=== PATIENT | female | born 1970 | race Caucasian/White ===

== ENCOUNTER 2016-09-13 16:41 | Inpatient (IN) ==
[2016-09-13] MEDS ORDERED: 0.9 % Sodium Chloride 1,000 ML IVC ONE (16:47)
--- NOTE | 2016-09-13 16:50 | Emergency Department Note ---
Disposition Clinical Impression: Dehydration, Renal insufficiency UTI (urinary tract infection) Qualifiers: Urinary tract infection type: acute cystitis Hematuria presence: without hematuria Qualified Code(s): N30.00 - Acute cystitis without hematuria Nausea & vomiting Qualifiers: Vomiting type: unspecified Vomiting Intractability: unspecified Qualified Code( s): R11.2 - Nausea with vomiting, unspecified Disposition: Admitted As Inpatient Condition: Good Referrals: Pedro Ibrahim MD [Primary Care Provider] - Forms: ED Satisfaction Letter Time of Disposition: 18:33 General Adult HPI - General Chief complaint: ED Syncope Stated complaint: Low BP Time Seen by Provider: 09/13/16 16:42 Source: patient, EMS Mode of arrival: EMS Limitations: no limitations Nursing Notes Reviewed: Yes Vital Signs Reviewed: Yes - History of Present Illness HPI Narrative: 45-year-old who comes in complaining of nausea vomiting states that she was seen here last night diagnosed with a UTI states she's not able to keep anything down. The patient was seen at the family doctor's office and they stated she had a blood pressure in the 70s although when the squad arrived it was 90 over palp. Pt Subjective Complaint: Nausea vomiting dizziness Onset (ago): day(s) Location: abdomen Radiation: non-radiation Pain Severity: moderate Quality: aching Consistency: constant Improves with: nothing Worsens with: nothing Associated symptoms: Reports: nausea/vomiting Treatments Prior to Arrival: other (Antibiotics) - Related Data Home Medications Medication Instructions Recorded Confirmed Crestor 07/04/15 07/04/15 Insulin. 07/04/15 07/04/15 Lisinopril 07/04/15 07/04/15 Lyrica 07/04/15 07/04/15 Prilosec 07/04/15 07/04/15 Synthroid 07/04/15 07/04/15 Previous Rx's Medication Instructions Recorded Acetaminophen [Tylenol] 500 mg PO Q6HR PRN #20 tablet 07/04/15 Amoxicillin 875 mg PO BID #20 tablet 07/04/15 Cetirizine HCl [Zyrtec] 10 mg PO DAILY 3 Days 07/04/15 Fluticasone Propionate Nasal 2 spray NS DAILY 7 Days 07/04/15 [Flonase] GuaiFENesin ER [Mucinex] 600 mg PO BID PRN 3 Days 07/04/15 Magic Mouthwash 5 ml PO TIDAC PRN #120 mls 07/04/15 Azithromycin [Azithromycin 6-Tab 250 mg PO DAILY #6 tab 11/14/15 Pack] GuaiFENesin/Dextromethorphan 5 ml PO Q6H PRN #120 ml 11/14/15 [Robitussin Cough-Chest Dm Liq] Loratadine/Pseudophed (12 HR) 1 each PO BID #20 tab.er.12h 11/14/15 [Claritin D (12HR)] Amoxicillin 875 mg PO BID #20 tablet 07/23/16 GuaiFENesin/Dextromethorphan 5 ml PO Q6H PRN #120 ml 07/23/16 [Robitussin Cough-Chest Dm Liq] Loratadine [Claritin] 10 mg PO DAILY #30 tablet 07/23/16 Cephalexin [Keflex] 500 mg PO QID #28 capsule 09/13/16 Ondansetron ODT [Zofran ODT] 4 mg SL Q6HR PRN #15 tab.rapdis 09/13/16 Allergies Allergy/AdvReac Type Severity Reaction Status Date / Time No Known Allergies Allergy Verified 09/12/16 22:47 Constitutional: Denies: fever, chills, weakness, weight change Eyes: Denies: eye pain, eye discharge, vision change ENT ED: Denies: ear pain, throat pain, dental pain, hearing loss, epistaxis, congestion, dysphagia Cardiovascular: Denies: chest pain, palpitations, dyspnea on exertion, edema, syncope Respiratory: Denies: cough, dyspnea, wheezes, hemoptysis, stridor Gastrointestinal: Reports: abdominal pain, nausea, vomiting. Denies: diarrhea, constipation, hematemesis, melena, hematochezia Genitourinary: Denies: dysuria, frequency, hematuria, discharge Musculoskeletal: Denies: back pain, neck pain, arthralgia, myalgia Integumentary: Denies: rash, abrasion, lesions Neurological: Denies: headache, weakness, numbness, paresthesias, confusion, abnormal gait, vertigo Psychiatric: Denies: anxiety, depression, suicidal thoughts, homicidal thoughts , auditory hallucinations, visual hallucinations Endocrine: Denies: fatigue Hematological/Lymphatic: Denies: easy bleeding, easy bruising Allergic/Immunologic: Denies: facial swelling, urticaria Past Medical History - Past Medical History Medical history: Reports: diabetes, hyperlipidemia, hypertension, thyroid disease, other (OAB since BTL surgery 2 years ago) Psychiatric history: Reports: anxiety, depression [employer]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 - Social History Smoking Status: Current every day smoker Smokeless Tobacco Status: No Alcohol use: Reports: none Drug use: Reports: none Physical Exam - General Limitations: no limitations General appearance: alert, in no apparent distress - Head Head exam: atraumatic, normocephalic, normal inspection - Eye Eye exam: Present: normal appearance, PERRL, EOMI - ENT ENT exam: normal exam, normal oropharynx, mucous membranes moist - Neck Neck exam: Present: normal inspection, full ROM, trachea midline - Chest Chest inspection: Present: normal inspection, symmetric chest wall rise - Respiratory Respiratory exam: Present: normal lung sounds bilaterally - Cardiovascular Cardiovascular exam: Present: regular rate, normal rhythm, normal heart sounds - Abdominal Exam Abdominal exam: Present: soft, tenderness. Absent: distention, guarding, rebound, rigidity Abdominal tenderness: Present: suprapubic - Extremities Exam Extremities exam: Present: normal inspection, full ROM. Absent: tenderness, pedal edema - Expanded Lower Extremity Exam Neurovascular/Tendon exam: Absent: motor deficit, sensory deficit, tendon deficit Gait: not tested/not observed - Back Exam Back exam: Present: normal inspection, full ROM. Absent: tenderness - Neurological Exam Neurological exam: Present: alert, oriented X3 - Psychiatric Psychiatric exam: Present: normal affect, normal mood Course - Reevaluation(s) Reevaluation #1: 35-year-old was diagnosed with UTI last night she's been having nausea vomiting throughout the night seen by family doctor found above a systolic blood pressure of 70. IV was established she was given fluid bolus her blood pressure improved. She will be admitted for IV hydration. Time: 18:32 - Consultations Consultation #1: Discussed with , admit. Time: 18:31 Vital Signs Temperature 98.8 F 09/13/16 16:43 Pulse Rate 79 09/13/16 16:43 Respiratory Rate 16 09/13/16 16:43 Blood Pressure 96/89 09/13/16 16:43 O2 Sat by Pulse Oximetry 94 L 09/13/16 16:43 Temperature 98.8 F 09/13/16 16:43 Pulse Rate 79 09/13/16 16:51 Respiratory Rate 18 09/13/16 16:51 Blood Pressure 96/89 09/13/16 16:51 O2 Sat by Pulse Oximetry 96 09/13/16 16:51 Oxygen Delivery Oxygen Delivery Room Air Medical Decision Making - Lab Data Result diagrams: 09/13/16 17:46 09/13/16 17:46 Lab Results 09/13/16 09/13/16 09/13/16 Range/Units 17:46 17:46 17:46 WBC 13.5 H (4.3-11.1) K/mcL RBC 4.43 (3.82-4.97) M/mcL Hgb 13.9 (11.5-15.4) g/dL Hct 40.7 (35.3-44.9) % MCV 91.9 (83.0-100.0) fL MCH 31.4 (28.0-33.3) pg MCHC 34.2 (31.6-35.5) g/dL RDW 15.0 H (11.5-14.5) % Plt Count 153 (140-400) K/mcL MPV 12.5 H (9.4-12.4) fL Immature Gran % 1.6 (0-4) % Seg Neutrophils % 91.4 % Lymphocytes % 4.9 % Monocytes % 1.7 % Eosinophils % 0.1 % Basophils % 0.3 % Neutrophils # 12.3 H (1.6-8.9) K/mcL Lymphocytes # 0.7 (0.6-4.6) K/mcL Monocytes # 0.2 (0.0-1.3) K/mcL Eosinophils # 0.0 (0.0-0.6) K/mcL Basophils # 0.0 (0.0-0.2) K/mcL PT 12.1 (9.4-12.1) Seconds INR 1.1 APTT 33.3 (26.0-36.0) Seconds Sodium 131 L (136-145) mEq/L Potassium 3.1 L (3.5-4.5) mEq/L Chloride 96 L (98-109) mEq/L Carbon Dioxide 22 (19-29) mEq/L BUN 16 (7-20) mg/dL Creatinine 1.13 H (0.57-1.11) mg/dL Est GFR ( Amer) > 60 (> 60) Est GFR (Non-Af Amer) 53 L (> 60) BUN/Creatinine Ratio 14 (6-26) Glucose 130 H (70-99) mg/dL Calculated Osmolality 275 L (280-300) Calcium 9.3 (8.6-10.8) mg/dL Troponin I (0-0.03) ng/mL Serum , Qual (Negative) 09/13/16 09/13/16 Range/Units 17:46 17:46 WBC (4.3-11.1) K/mcL RBC (3.82-4.97) M/mcL Hgb (11.5-15.4) g/dL Hct (35.3-44.9) % MCV (83.0-100.0) fL MCH (28.0-33.3) pg MCHC (31.6-35.5) g/dL RDW (11.5-14.5) % Plt Count (140-400) K/mcL MPV (9.4-12.4) fL Immature Gran % (0-4) % Seg Neutrophils % % Lymphocytes % % Monocytes % % Eosinophils % % Basophils % % Neutrophils # (1.6-8.9) K/mcL Lymphocytes # (0.6-4.6) K/mcL Monocytes # (0.0-1.3) K/mcL Eosinophils # (0.0-0.6) K/mcL Basophils # (0.0-0.2) K/mcL PT (9.4-12.1) Seconds INR APTT (26.0-36.0) Seconds Sodium (136-145) mEq/L Potassium (3.5-4.5) mEq/L Chloride (98-109) mEq/L Carbon Dioxide (19-29) mEq/L BUN (7-20) mg/dL Creatinine (0.57-1.11) mg/dL Est GFR ( Amer) (> 60) Est GFR (Non-Af Amer) (> 60) BUN/Creatinine Ratio (6-26) Glucose (70-99) mg/dL Calculated Osmolality (280-300) Calcium (8.6-10.8) mg/dL Troponin I 0.00 (0-0.03) ng/mL Serum , Qual Negative (Negative) - EKG Data EKG #1 EKG shows normal: sinus rhythm Rhythm: NSR [place]/QRS: normal Interpretation: no acute changes
[2016-09-13 17:53] LABS: Basophils % 0.3 %; Eosinophils % 0.1 %; Hematocrit 40.7 % (35.3-44.9); Hemoglobin 13.9 g/dL (11.5-15.4); Immature Granulocytes % 1.6 % (0-4); Lymphocytes # 0.7 K/mcL (0.6-4.6); Lymphocytes % 4.9 %; Mean Corpuscular HGB Conc 34.2 g/dL (31.6-35.5); Mean Corpuscular Hemoglobin 31.4 pg (28.0-33.3); Mean Corpuscular Volume 91.9 fL (83.0-100.0); Mean Platelet Volume 12.5 fL (9.4-12.4); Monocytes # 0.2 K/mcL (0.0-1.3); Monocytes % 1.7 %; Neutrophils # 12.3 K/mcL (1.6-8.9); Platelet Count 153 K/mcL (140-400); Red Blood Count 4.43 M/mcL (3.82-4.97); Segmented Neutrophils % 91.4 %
[2016-09-13 17:58] LABS: INR 1.1; Prothrombin Time 12.1 Seconds (9.4-12.1)
[2016-09-13 18:01] LABS: Activated Partial Thrombo Time 33.3 Seconds (26.0-36.0)
[2016-09-13 18:05] LABS: BUN/Creatinine Ratio 14 (6-26); Blood Urea Nitrogen 16 mg/dL (7-20); Calcium 9.3 mg/dL (8.6-10.8); Carbon Dioxide 22 mEq/L (19-29); Chloride 96 mEq/L (98-109); Glucose 130 mg/dL (70-99); Osmolality,Calculated 275 (280-300); Potassium 3.1 mEq/L (3.5-4.5); Sodium 131 mEq/L (136-145); eGFR For African Americans > 60 (> 60); eGFR For Non-African Americans 53 (> 60)
[2016-09-13] MEDS ORDERED: Naloxone 0.4 MG/ML INJ IVP PRN (19:59)
[2016-09-13] MEDS ORDERED: Ondansetron 4 MG/2 ML VIAL IVP PRN ×2 (19:59→21:30)
[2016-09-13] MEDS ORDERED: 0.9 % Sodium Chloride 1,000 ML IVC SCH (20:00)
[2016-09-13] MEDS ORDERED: levoFLOXacin 750 MG TABLET PO SCH (20:30)
[2016-09-13] MEDS: *HR* Morphine 2 MG/ML SYRINGE IVP PRN (20:37)
[2016-09-13] MEDS: Acetaminophen 325 MG TABLET PO PRN (21:16)
[2016-09-13] MEDS: 0.9 % Sodium Chloride 1,000 ML IVC SCH ×4 (21:25→23:49)
[2016-09-13] MEDS ORDERED: Acetaminophen 650 MG RECTAL SUPP RC PRN (21:29)
[2016-09-13] MEDS ORDERED: *HR* Dextrose 50 % in Water (Syg) 50 ML SYRINGE IVP PRN (21:39)
[2016-09-13] MEDS ORDERED: D5% in Water 1,000 ML IV PRN (21:39)
[2016-09-13] MEDS ORDERED: Dextrose Gel 15 GM PO PRN ×2 (21:39)
--- NOTE | 2016-09-13 22:00 | Internal Med History&Physical ---
Addendum entered and electronically signed by Haley Terry DO 00:10: Patient was treated with Keflex 500mg QID x 7 days when discharged to home from ED on morning of 09/13/16. She states that she was only able to take one pill after discharge due to nausea and vomiting. Addendum entered and electronically signed by Yordan Rodgers MD 09/13/16 23:53 : I agree with the assessment and plan of Resident, case discussed, plan agreed upon. Patient evaluated at bedside. Right-sdied pleuritic pain. Reduced air entry in lung bases, R<L, expiratory wheezing in both lung zone. I appreciate finding on CXR. Evaluation suggestive of RLL pneumonia with pleurisy. Urinalysis is equivocal. Unlikely she has UTI. Ceftriaxone and Azithromycin. IVF for MONICA and hyponatremia, supplement potassium. Original Note: Date of Encounter: 09/13/16 Time of Encounter: 20:00 Assessment and Plan (1) Sepsis Current visit: Yes Status: Acute Patient with fever 101.7, WBC 13.5 CXR with RLL PNA and possible LLL PNA 1L bolus IVF in ED given 1L bolus + IVF at 120mL/hr Sputum culture, pending Blood cultures x 2 Ceftriaxone 1g and Zithromax 500mg q 24 hours Qualifiers: Sepsis type: sepsis due to unspecified organism Qualified Code(s): A41.9 - Sepsis, unspecified organism (2) Pneumonia Current visit: Yes Status: Acute Plan: See plan as above Duonebs prn Qualifiers: Pneumonia type: due to unspecified organism Laterality: bilateral Qualified Code(s): J18.9 - Pneumonia, unspecified organism (3) MONICA (acute kidney injury) Current visit: Yes Status: Acute Patient with Cr 1.13 up from 1.08 yesterday. This is likely due to dehydration from intractable vomiting with diarrhea. Plan: IVF rehydration Trend renal function in am (4) Dehydration with hyponatremia Current visit: Yes Status: Acute Plan: Continue IVF rehydration Trend CMP in am (5) Hypokalemia Current visit: Yes Status: Acute Hyponatremia and hypokalemia with dehydration Plan: IVF rehydration Replace K+ 40mEq Trend CMP in am (6) Diabetes mellitus type 1 Current visit: Yes Status: Acute Patient has insulin pump in place and on Novalog 50-70 units per day Plan: Supply short-acting insulin for pump POC Glucose q 4hr Hypoglycemia protocol Qualifiers: Diabetes mellitus complication status: with unspecified complications Qualified Code(s): E10.8 - Type 1 diabetes mellitus with unspecified complications (7) Insulin pump in place Current visit: Yes Status: Acute (8) Nausea and vomiting Current visit: No Status: Acute Plan: Prn Zofran and phenergan IVF rehydration Qualifiers: Vomiting type: unspecified Vomiting Intractability: non-intractable Qualified Code(s): R11.2 - Nausea with vomiting, unspecified (9) Abnormal urinalysis Current visit: Yes Status: Acute Patient with pyouria on ED visit 09/12/16. May be due to dehydration. Urine culture, pending. Plan: Ceftriaxone given in ED Continue ceftriaxone (10) DVT prophylaxis Current visit: Yes Status: Acute Calf pumps Internal Medicine - H&P: HPI Chief complaint: nausea,vomiting,dizzizness, back pain Admitted From: Emergency Dept Plans for Post Hospital Care: Home History of present illness: Ms. Fernandez is a 45 year old female who presents to the hospital with a 5 day history of progressively worsening nausea and vomiting. She states that she has also had right-sided back pain 5 days. She presented to her family doctor , Dr. Alatorre on or Monday. She states that she had a shot in the gluteus medius muscle for the back pain. However she does not know what was in this shot. She states that she has been having recent fever, chills, and diaphoresis. She presented to the emergency department yesterday 09/12/2016, and was diagnosed with UTI. She was treated with___. She returned to the emergency department with complaints that nausea, vomiting, and back pain did not resolve. Admits fever, chills, diaphoresis, headache, dizziness, weakness, disequilibrium , nasal congestion, bradycardia, dyspnea at rest, cough productive of yellow sputum, increased frequency of urination. Denies chest pain, palpitations, syncope, hemoptysis, hematemesis, hematochezia , melena, dysuria, hematuria. Past Med Surg Social Fam HX - Past Medical History Medical history: diabetes, hyperlipidemia, hypertension, peripheral artery disease, thyroid disease, other (urge incontinence) Psychiatric history: anxiety, depression - Past Surgical History Surgical History: other (tubal ligation), vascular surgery (angioplasty to bilateral lower extremities) - Social History Smoking Status: Current every day smoker Packs per day: 1.5 Smokeless Tobacco Status: No Alcohol use: none Drug use: none - Family History Mother Living Status: Still Living Hx Family Cancer: Yes (Lung Cancer) Father Living Status: Still Living Hx Family Cardiac Disorders: Yes (PVD) Internal Medicine - H&P: Meds Citalopram Hydrobromide [Citalopram HBr] 40 mg PO DAILY 09/13/16 [History] Insulin ASPART [NovoLOG] 0 unit SQ AD 09/13/16 [History] Levothyroxine [Synthroid] 150 mcg PO DAILY 09/13/16 [History] Lisinopril [Lisinopril] 2.5 mg PO DAILY 09/13/16 [History] Melatonin [Melatonin] 2.5 mg PO HS 09/13/16 [History] Omeprazole [PriLOSEC] 40 mg PO DAILY 09/13/16 [History] Pregabalin [Lyrica] 150 mg PO BID 09/13/16 [History] Rosuvastatin Calcium [Rosuvastatin Calcium] 40 mg PO DAILY 09/13/16 [History] Tizanidine HCl 4 mg PO TID PRN 09/13/16 [History] Tramadol HCl [Tramadol HCl] 50 mg PO TID PRN 09/13/16 [History] Allergies No Known Allergies Allergy (Verified 09/12/16 22:47) All Systems PM: A 10-system review of systems was performed and is negative for pertinent findings except as documented above in the HPI. - Constitutional Constitutional: anorexia, chills, excessive sweating, fatigue, fever(s), weakness, no falls - EENT Ears: ear pain Nose, mouth and throat: nasal congestion, nasal discharge - Cardiovascular Cardiovascular ROS IM: dyspnea, dyspnea on exertion, other (bradycardia- subjective), no chest pain, no irregular heart rhythm - Respiratory Respiratory: cough, dyspnea, change in phlegm color (yellow sputum), no hemoptysis - Gastrointestinal Gastrointestinal: diarrhea, nausea, vomiting (non-bloody), no abdominal pain, no hematemesis, no hematochezia, no melena - Genitourinary Genitourinary: flank pain (right sided), urinary frequency, urinary incontinence (chronic stress incontinence), no dysuria - Musculoskeletal Musculoskeletal ROS IM: back pain (right sided back pain x 5 days), myalgias - Neurological Neurological ROS: disequilibrium, dizziness, headache(s), loss of vision, weakness - Constitutional Vitals: Temp Pulse Resp BP Pulse Ox 101.7 F H 93 16 105/72 97 09/13/16 20:42 09/13/16 20:42 09/13/16 20:42 09/13/16 20:42 09/13/16 20:42 General appearance: Present: cooperative, mild distress (vomitting intermittently during exam), A&O X 3, pleasant, answers questions appropriately - Head Head exam: Present: atraumatic, normal inspection, normocephalic - Eye Eye exam: Present: EOMI - ENT ENT exam: Present: mucous membranes dry - Neck Neck exam general surgery: Present: full ROM - Respiratory Respiratory exam: Present: chest wall tenderness (TTP right back wrapping around right flank to right chest), wheezes (expiratory wheezing bilaterally, right base greater than left). Absent: rhonchi - Cardiovascular Cardiovascular exam: Present: RRR, +S1, +S2 - GI/Abdominal GI/Abdominal exam: Present: normal bowel sounds. Absent: tenderness, no peritoneal signs - Extremities Exam Extremities exam: Present: warm. Absent: pedal edema, tenderness - Psychiatric Psychiatric exam: Present: normal affect, normal mood - Skin Skin exam: Present: warm Internal Med - H&P Results - Labs CBC & Chem 7: 09/13/16 17:46 09/13/16 17:46 Labs: Laboratory Results - last 48 hr 09/13/16 09/13/16 09/13/16 17:46 17:46 17:46 WBC 13.5 H RBC 4.43 Hgb 13.9 Hct 40.7 MCV 91.9 MCH 31.4 MCHC 34.2 RDW 15.0 H Plt Count 153 MPV 12.5 H Immature Gran % 1.6 Seg Neutrophils % 91.4 Lymphocytes % 4.9 Monocytes % 1.7 Eosinophils % 0.1 Basophils % 0.3 Neutrophils # 12.3 H Lymphocytes # 0.7 Monocytes # 0.2 Eosinophils # 0.0 Basophils # 0.0 PT 12.1 INR 1.1 APTT 33.3 Sodium 131 L Potassium 3.1 L Chloride 96 L Carbon Dioxide 22 BUN 16 Creatinine 1.13 H Est GFR ( Amer) > 60 Est GFR (Non-Af Amer) 53 L BUN/Creatinine Ratio 14 Glucose 130 H POC Glucose Calculated Osmolality 275 L Lactic Acid Calcium 9.3 Total Bilirubin Troponin I Serum , Qual 09/13/16 09/13/16 09/13/16 17:46 17:46 21:24 WBC RBC Hgb Hct MCV MCH MCHC RDW Plt Count MPV Immature Gran % Seg Neutrophils % Lymphocytes % Monocytes % Eosinophils % Basophils % Neutrophils # Lymphocytes # Monocytes # Eosinophils # Basophils # PT INR APTT Sodium Potassium Chloride Carbon Dioxide BUN Creatinine Est GFR ( Amer) Est GFR (Non-Af Amer) BUN/Creatinine Ratio Glucose POC Glucose 207 H Calculated Osmolality Lactic Acid Calcium Total Bilirubin Troponin I 0.00 Serum , Qual Negative 09/13/16 09/13/16 22:32 22:32 WBC RBC Hgb Hct MCV MCH MCHC RDW Plt Count MPV Immature Gran % Seg Neutrophils % Lymphocytes % Monocytes % Eosinophils % Basophils % Neutrophils # Lymphocytes # Monocytes # Eosinophils # Basophils # PT INR APTT Sodium Potassium Chloride Carbon Dioxide BUN Creatinine Est GFR ( Amer) Est GFR (Non-Af Amer) BUN/Creatinine Ratio Glucose POC Glucose Calculated Osmolality Lactic Acid 1.2 Calcium Total Bilirubin 0.7 Troponin I Serum , Qual - Impressions Chest X-Ray 09/13/16 16:47 IMPRESSION: Large confluent right lower lobe pneumonia. Possible mild left lower lobe disease. Follow-up to complete clearing is recommended. D/ / Vince Henderson MD / Vince Henderson MD Interpreting Provider: Vince Henderson MD
[2016-09-13] MEDS ORDERED: 0.9 % Sodium Chloride 1,000 ML ONE (22:05)
[2016-09-13] MEDS ORDERED: Insulin LISPRO 300 UNITS/3 ML VIAL SQ PRN (22:18)
[2016-09-13] MEDS ORDERED: *HR* Promethazine 25 MG/ML VIAL IVP PRN (22:26)
[2016-09-13] MEDS: 0.9 % Sodium Chloride w KCl 20 MEQ/1,000 ML MLS IVC SCH (22:36)
[2016-09-13] MEDS: Pregabalin 75 MG CAPSULE PO SCH (22:39)
[2016-09-13] MEDS: Melatonin 3 MG TABLET PO SCH (22:40)
[2016-09-13] MEDS ORDERED: INSULIN ASPART SQ PRN (23:21)
[2016-09-13] MEDS ORDERED: Ipratropium/Albuterol Neb 3 ML IH PRN (23:28)
[2016-09-13] MEDS: Azithromycin 500 MG in D5% in Water 250 ML IVPB SCH (23:36)
[2016-09-14] MEDS ORDERED: Promethazine 12.5 MG in 0.9 % Sodium Chloride 50 ML IVPB SCH
[2016-09-14 04:11] LABS: Hematocrit 33.4 % (35.3-44.9); Mean Corpuscular HGB Conc 34.7 g/dL (31.6-35.5); Mean Corpuscular Hemoglobin 31.5 pg (28.0-33.3); Mean Corpuscular Volume 90.8 fL (83.0-100.0); Mean Platelet Volume 12.4 fL (9.4-12.4); Platelet Count 132 K/mcL (140-400); Red Blood Count 3.68 M/mcL (3.82-4.97); Red Cell Distribution Width 15.3 % (11.5-14.5)
[2016-09-14 04:23] LABS: Hemoglobin 11.6 g/dL (11.5-15.4)
[2016-09-14 04:39] LABS: Alanine Aminotransferase 19 Units/L (0-55); Albumin 2.4 g/dL (3.5-5.0); Albumin/Globulin Ratio 0.7 (1.1-2.2); Alkaline Phosphatase 175 Units/L (38-126); Aspartate Amino Transferase 36 Units/L (5-34); BUN/Creatinine Ratio 12 (6-26); Bilirubin,Total 0.6 mg/dL (0.2-1.2); Blood Urea Nitrogen 11 mg/dL (7-20); Carbon Dioxide 22 mEq/L (19-29); Chloride 103 mEq/L (98-109); Globulin 3.4 g/dL (2.4-3.5); Glucose 315 mg/dL (70-99); LDL Cholesterol,Calculated 19 mg/dL (0-99); Magnesium 1.6 mg/dL (1.6-2.6); Osmolality,Calculated 287 (280-300); Phosphorous 1.7 mg/dL (2.3-4.7); Potassium 3.9 mEq/L (3.5-4.5); Sodium 133 mEq/L (136-145); Total Protein 5.8 g/dL (6.0-8.3); Triglycerides 198 mg/dL (< 150); eGFR For African Americans > 60 (> 60); eGFR For Non-African Americans > 60 (> 60)
[2016-09-14 04:49] LABS: Calcium 7.5 mg/dL (8.6-10.8); Cholesterol 64 mg/dL (< 200); HDL Cholesterol < 5 mg/dL (40-59)
[2016-09-14] MEDS: *HR* Morphine 2 MG/ML SYRINGE IVP PRN (05:02)
[2016-09-14 05:10] LABS: Lymphocytes # 0.9 K/mcL (0.6-4.6); Monocytes # 0.5 K/mcL (0.0-1.3); Neutrophils # 10.2 K/mcL (1.6-8.9); Platelet Estimate Normal (Normal)
[2016-09-14] MEDS: Pantoprazole 40 MG VIAL IVP SCH (09:54)
[2016-09-14] MEDS: Pregabalin 75 MG CAPSULE PO SCH ×2 (09:54→23:01)
--- NOTE | 2016-09-14 10:57 | Electrocardiograph Report ---
[address] [place], [place] [address] Test Date: 2016-09-13 Pat Name: Stephanie Fernandez Department: 103 Room: 3B38 Gender: F Stand Up Forklift Operator: : 1970 Requested By: James Root Order Number: [id number] Reading MD: Barbara De Leon Measurements Intervals [place] Rate: 77 P: 62 TN: 155 QRS: 93 QRSD: 108 T: 67 QT: 392 QTc: 423 Interpretive Statements SINUS RHYTHM BORDERLINE RIGHT AXIS DEVIATION LOW QRS VOLTAGE IN PRECORDIAL LEADS INCOMPLETE RIGHT BUNDLE BRANCH BLOCK SEPTAL MYOCARDIAL INFARCTION, OF INDETERMINATE AGE Electronically Signed On 09-14-2016 10:55:35 EST by Barbara De Leon
[2016-09-14] MEDS: *HR* HYDROcodone/Acet 5/325 mg TABLET PO PRN ×2 (12:58→19:28)
--- NOTE | 2016-09-14 13:04 | Internal Med Progress Note ---
Date of Encounter: 09/14/16 Time of Encounter: 09:00 - Assessment and plan (1) Pneumonia Current Visit: Yes Status: Acute Assessment and plan: Likely community-acquired, no recent hospitalizations. Unknown organism. Sputum culture pending. Continue azithromycin and ceftriaxone. Fever has subsided. She is tolerating room air. Patient complaining of right-sided chest pain that is reproducible and consistent with musculoskeletal etiology. Hypokalemia and acute kidney injury both resolved. We will observe overnight and likely discharge tomorrow pending clinical outcomes. ITS Impressions Chest X-Ray 09/13/16 16:47 IMPRESSION: Large confluent right lower lobe pneumonia. Possible mild left lower lobe disease. Follow-up to complete clearing is recommended. D/ / Vince Henderson MD / Vince Henderson MD Interpreting Provider: Vince Henderson MD Qualifiers: Pneumonia type: due to unspecified organism Laterality: bilateral Qualified Code(s): J18.9 - Pneumonia, unspecified organism (2) Nausea and vomiting Current Visit: No Status: Resolved Assessment and plan: Continue Zofran and Phenergan. Qualifiers: Vomiting type: unspecified Vomiting Intractability: non-intractable Qualified Code(s): R11.2 - Nausea with vomiting, unspecified (3) Sepsis Current Visit: Yes Status: Resolved Assessment and plan: Patient now afebrile. Leukocytosis nearly resolved. Heart rate and blood pressure stable. Lactic acid normal. No signs of sepsis at this time Qualifiers: Sepsis type: sepsis due to unspecified organism Qualified Code(s): A41.9 - Sepsis, unspecified organism (4) Abnormal urinalysis Current Visit: Yes Status: Acute Assessment and plan: Abnormal urinalysis on 09/12/16. Urine culture grossly mixed. Patient denies dysuria. On azithromycin and ceftriaxone for pneumonia (5) MONICA (acute kidney injury) Current Visit: Yes Status: Resolved (6) DVT prophylaxis Current Visit: Yes Status: Acute Assessment and plan: IPC's (7) Dehydration with hyponatremia Current Visit: Yes Status: Acute (8) Diabetes mellitus type 1 Current Visit: Yes Status: Chronic Assessment and plan: Continue her home insulin pump. No recent A1c, we will check an a.m. continue Accu-Cheks every 4 Qualifiers: Diabetes mellitus complication status: with unspecified complications Qualified Code(s): E10.8 - Type 1 diabetes mellitus with unspecified complications (9) Hypokalemia Current Visit: Yes Status: Resolved (10) Insulin pump in place Current Visit: Yes Status: Chronic - Subjective Interval history: Patient seen and examined. On examination, patient is sitting upright in bed eating breakfast. Patient still endorsing right-sided chest pain that is worsened with movement and touch. Patient stating she is eating well and states her nausea and vomiting is currently controlled. - Constitutional Vitals: Temp Pulse Resp BP Pulse Ox 98.3 F 79 16 124/83 97 09/14/16 11:06 09/14/16 11:06 09/14/16 11:06 09/14/16 11:06 09/14/16 11:06 General appearance: Present: cooperative, A&O X 3, pleasant, no acute distress, answers questions appropriately - Head Head exam: Present: atraumatic, normocephalic - Eye Eye exam: Present: PERRL, conjuntiva pink, sclera anicteric Pupils: Present: PERRL - Neck Neck exam general surgery: Present: supple, trachea midline. Absent: lymphadenopathy - Respiratory Respiratory exam: Present: chest wall tenderness, decreased breath sounds. Absent: accessory muscle use, rales, respiratory distress, rhonchi, wheezes - Cardiovascular Cardiovascular exam: Present: RRR, +S1, +S2. Absent: diastolic murmur, gallop, rubs, systolic murmur - GI/Abdominal GI/Abdominal exam: Present: normal bowel sounds, soft, no peritoneal signs. Absent: distended, tenderness - Extremities Exam Extremities exam: Present: warm, radial pulses palpable and symetrical. Absent : calf tenderness, cyanotic, pedal edema - Neurological Exam Neurological exam: Present: alert, CN II-XII intact, oriented X3, no focal deficits, strengths equal and symetr throughout. Absent: pronater drift, facial droop, speech deficit - Skin Skin exam: Present: dry, intact, pallor, warm Internal Medicine: Result - Labs CBC & Chem 7: 09/14/16 03:52 09/14/16 03:52 Labs: Short CBC 09/14/16 Range/Units 03:52 WBC 11.6 H (4.3-11.1) K/mcL Hgb 11.6 D (11.5-15.4) g/dL Hct 33.4 L (35.3-44.9) % Plt Count 132 L (140-400) K/mcL Neutrophils # 10.2 H (1.6-8.9) K/mcL BMP 09/14/16 03:52 Sodium 133 L Potassium 3.9 Chloride 103 Carbon Dioxide 22 BUN 11 Creatinine 0.90 Glucose 315 H Calcium 7.5 L D Liver Function 09/14/16 Range/Units 03:52 Total Bilirubin 0.6 (0.2-1.2) mg/dL AST 36 H (5-34) Units/L ALT 19 (0-55) Units/L Alkaline Phosphatase 175 H (38-126) Units/L Albumin 2.4 L (3.5-5.0) g/dL - ABG Interpretation ABG results: PT/INR, D-dimer PT 12.1 Seconds (9.4-12.1) 09/13/16 17:46 Consult Discharge Plan - Plan Referrals: Pedro Ibrahim MD [Primary Care Provider] -
[2016-09-14] MEDS: Melatonin 3 MG TABLET PO SCH (23:02)
[2016-09-14] MEDS: Azithromycin 500 MG in D5% in Water 250 ML IVPB SCH (23:02)
[2016-09-15] MEDS: 0.9 % Sodium Chloride w KCl 20 MEQ/1,000 ML MLS IVC SCH (02:50)
[2016-09-15] MEDS: Acetaminophen 325 MG TABLET PO PRN (03:17)
[2016-09-15 03:56] LABS: Basophils % 0.2 %; Eosinophils # 0.1 K/mcL (0.0-0.6); Eosinophils % 0.5 %; Hematocrit 40.1 % (35.3-44.9); Immature Granulocytes % 1.9 % (0-4); Lymphocytes # 1.1 K/mcL (0.6-4.6); Lymphocytes % 10.3 %; Mean Corpuscular HGB Conc 33.4 g/dL (31.6-35.5); Mean Corpuscular Hemoglobin 30.5 pg (28.0-33.3); Mean Corpuscular Volume 91.1 fL (83.0-100.0); Mean Platelet Volume 11.2 fL (9.4-12.4); Monocytes # 0.4 K/mcL (0.0-1.3); Monocytes % 3.5 %; Neutrophils # 8.7 K/mcL (1.6-8.9); Platelet Count 186 K/mcL (140-400); Red Cell Distribution Width 15.5 % (11.5-14.5); Segmented Neutrophils % 83.6 %
[2016-09-15 04:00] LABS: Hemoglobin 13.4 g/dL (11.5-15.4)
[2016-09-15 04:10] LABS: Hemoglobin A1C 7.9 %
[2016-09-15 04:14] LABS: BUN/Creatinine Ratio 11 (6-26); Blood Urea Nitrogen 9 mg/dL (7-20); Calcium 8.6 mg/dL (8.6-10.8); Carbon Dioxide 26 mEq/L (19-29); Chloride 99 mEq/L (98-109); Glucose 55 mg/dL (70-99); Osmolality,Calculated 278 (280-300); Potassium 3.3 mEq/L (3.5-4.5); Sodium 136 mEq/L (136-145); eGFR For African Americans > 60 (> 60); eGFR For Non-African Americans > 60 (> 60)
[2016-09-15] MEDS: Pregabalin 75 MG CAPSULE PO SCH (07:51)
[2016-09-15] MEDS: Pantoprazole 40 MG VIAL IVP SCH (07:52)
[2016-09-15] MEDS: *HR* HYDROcodone/Acet 5/325 mg TABLET PO PRN (07:56)
[2016-09-15 11:15] VITALS: BP 122/81
--- NOTE | 2016-09-15 13:19 | Discharge Summary ---
Date of Encounter: 09/15/16 Time of Encounter: 09:45 (and 1315) - Discharge Diagnosis (1) Pneumonia Priority: Primary Status: Acute Comments: Likely community-acquired, no recent hospitalizations. Unknown organism. Sputum culture pending at time of discharge. Treated with azithromycin and ceftriaxone while admitted. Fever has subsided. She is tolerating room air and denies shortness of breath above her norm. Reproducible right-sided chest pain resolved on day of discharge. ITS Impressions Chest X-Ray 09/13/16 16:47 IMPRESSION: Large confluent right lower lobe pneumonia. Possible mild left lower lobe disease. Follow-up to complete clearing is recommended. D/ / Vince Henderson MD / Vince Henderson MD Interpreting Provider: Vince Henderson MD Qualifiers: Pneumonia type: due to unspecified organism Laterality: bilateral Qualified Code(s): J18.9 - Pneumonia, unspecified organism (2) Nausea and vomiting Priority: Primary Status: Resolved Qualifiers: Vomiting type: unspecified Vomiting Intractability: non-intractable Qualified Code(s): R11.2 - Nausea with vomiting, unspecified (3) Sepsis Priority: Primary Status: Resolved Qualifiers: Sepsis type: sepsis due to unspecified organism Qualified Code(s): A41.9 - Sepsis, unspecified organism (4) Abnormal urinalysis Priority: Primary Status: Ruled-out Comments: Abnormal urinalysis on 09/12/16. Urine culture grossly mixed. Patient denies dysuria. On azithromycin and ceftriaxone for pneumonia while admitted. Sent home on Levofloxacin which would cover most UTI organisms; low suspicion for acute UTI (5) MONICA (acute kidney injury) Priority: Primary Status: Resolved (6) DVT prophylaxis Priority: Primary Status: Acute Comments: IPC's while admitted (7) Dehydration with hyponatremia Priority: Primary Status: Resolved (8) Diabetes mellitus type 1 Priority: Secondary Status: Chronic Comments: Continued her home insulin pump while admitted. A1c 7.9%. She did have a hypoglycemic episode on the morning of discharge, resolved quickly with food. Recommend continued follow up outpatient. Qualifiers: Diabetes mellitus complication status: with unspecified complications Qualified Code(s): E10.8 - Type 1 diabetes mellitus with unspecified complications (9) Hypokalemia Priority: Primary Status: Acute Comments: resolved, then mild on day of discharge. Asymptomatic, follow-up outpatient (10) Insulin pump in place Priority: Secondary Status: Chronic - Discharge Medications Prescriptions: Albuterol Sulfate [Albuterol Inhaler] 2 puff IH Q4HR PRN #1 hfa.aer.ad PRN Reason: Shortness Of Breath Promethazine [Phenergan] 12.5 mg PO Q6HR PRN #15 tablet PRN Reason: Nausea And Vomiting Budesonide/Formoterol 160/4.5 [Symbicort 160/4.5] 2 puff IH BIDR #1 hfa.aer.ad GuaiFENesin ER [Mucinex] 600 mg PO BID #14 tbbp.12hr HYDROcodone/Acet 5/325 mg [[place] 5-325 mg] 1 tab PO Q6H PRN #12 tablet PRN Reason: Pain Levofloxacin 750 mg PO DAILY #7 tablet Home Medications: Citalopram Hydrobromide [Citalopram HBr] 40 mg PO DAILY 09/13/16 [History] Insulin ASPART [NovoLOG] 0 unit SQ AD 09/13/16 [History] Levothyroxine [Synthroid] 150 mcg PO DAILY 09/13/16 [History] Lisinopril 2.5 mg PO DAILY 09/13/16 [History] Melatonin 2.5 mg PO HS 09/13/16 [History] Omeprazole [PriLOSEC] 40 mg PO DAILY 09/13/16 [History] Pregabalin [Lyrica] 150 mg PO BID 09/13/16 [History] Rosuvastatin Calcium 40 mg PO DAILY 09/13/16 [History] Tizanidine HCl 4 mg PO TID PRN 09/13/16 [History] Tramadol HCl 50 mg PO TID PRN 09/13/16 [History] Albuterol Sulfate [Albuterol Inhaler] 2 puff IH Q4HR PRN #1 hfa.aer.ad 09/15/16 [Rx] Budesonide/Formoterol 160/4.5 [Symbicort 160/4.5] 2 puff IH BIDR #1 hfa.aer.ad 09/15/16 [Rx] GuaiFENesin ER [Mucinex] 600 mg PO BID #14 tbbp.12hr 02/09/17 [Rx] HYDROcodone/Acet 5/325 mg [[place] 5-325 mg] 1 tab PO Q6H PRN #12 tablet 09/15/16 [Rx] Levofloxacin 750 mg PO DAILY #7 tablet 09/15/16 [Rx] Promethazine [Phenergan] 12.5 mg PO Q6HR PRN #15 tablet 09/15/16 [Rx] Allergies/Adverse Reactions: Allergies No Known Allergies Allergy (Verified 09/12/16 22:47) Date of admission: 09/13/16 23:50 Primary care physician: Pedro Ibrahim MD Discharging clinician: Gaye Busch Anticipated date of discharge: 09/15/16 (if able to eat lunch) - Patient Status Disposition: Home, Self-Care Condition: Good Functional capacity at discharge: independent ambulation Overall status at discharge: patient is back to baseline - Discharge Instructions Follow Up With: Pedro Ibrahim MD [Primary Care Provider] - Additional Instructions: Follow-up with primary care provider in one to 2 weeks - Diet and Activity Activity: increase activity as tolerated Diet: diabetic diet, low fat, low cholesterol, low salt diet Hospital course: Ms. Fernandez is a 45 year old female with past medical history type 1 diabetes with insulin pump, hyperlipidemia, hypertension, PAD, thyroid disease, 1.5 packs per day smoker. Patient presented to the emergency department chief complaint nausea and vomiting 5 days associated with right-sided back pain 5 days. Patient saw her primary care doctor several days prior to this presentation she was given a shot of an unknown medication. Patient also endorsed fever, chills, diaphoresis. Patient was seen in the emergency department on the day prior to this presentation she was diagnosed with a urinary tract infections at home on Keflex. Due to her vomiting, she is not able to take any of the Keflex that she returned to the emergency department. Chest x-ray in the emergency department consistent with right lower lobe pneumonia. Patient was started on azithromycin and ceftriaxone and admitted to the hospitalist service for further evaluation and management. Initial acute kidney injury and leukocytosis resolved during her 3 day admission. Patient denied dysuria. Urine culture was grossly mixed and unable to be interpreted. Blood cultures were negative. She was initially septic but that resolved shortly after admission. She was able to tolerate a regular diet while admitted. She did not require supplemental oxygenation during this admission. On the night prior to presentation, patient became mildly hypoglycemic that resolved quickly with food. She was discharged home in stable condition with close outpatient follow-up recommended. She was sent on levofloxacin to cover both pneumonia and possible UTI. Of note, patient is a 1-1/2 pack per day smoker. On examination, she had diffuse wheezing throughout. She was started on controller medications of Symbicort and albuterol as needed. Recommend follow-up outpatient for PFT testing and likely COPD diagnosis. ITS Impressions Chest X-Ray 09/13/16 16:47 IMPRESSION: Large confluent right lower lobe pneumonia. Possible mild left lower lobe disease. Follow-up to complete clearing is recommended. D/ / Vince Henderson MD / Vince Henderson MD Interpreting Provider: Vince Henderson MD - Time Spent with Patient Total time spent providing and/or coordinating discharge services: - Constitutional Vitals: Temp Pulse Resp BP Pulse Ox 97.6 F 71 16 122/81 96 09/15/16 11:10 09/15/16 11:10 09/15/16 11:10 09/15/16 11:10 09/15/16 11:10 General appearance: Present: cooperative, A&O X 3, pleasant, no acute distress, answers questions appropriately - Head Head exam: Present: atraumatic, normocephalic - Eye Eye exam: Present: PERRL, conjuntiva pink, sclera anicteric Pupils: Present: PERRL - Neck Neck exam general surgery: Present: supple, trachea midline. Absent: lymphadenopathy - Respiratory Respiratory exam: Present: decreased breath sounds, rhonchi, wheezes. Absent: accessory muscle use, rales, respiratory distress - Cardiovascular Cardiovascular exam: Present: RRR, +S1, +S2. Absent: diastolic murmur, gallop, rubs, systolic murmur - GI/Abdominal GI/Abdominal exam: Present: normal bowel sounds, soft, no peritoneal signs. Absent: distended, tenderness - Extremities Exam Extremities exam: Present: warm, radial pulses palpable and symetrical. Absent : calf tenderness, cyanotic, pedal edema - Neurological Exam Neurological exam: Present: alert, CN II-XII intact, normal gait, oriented X3, no focal deficits, strengths equal and symetr throughout. Absent: pronater drift, facial droop, speech deficit - Skin Skin exam: Present: dry, intact, pallor, warm
== END 2016-09-15 14:07 | disposition home or self-care (01) | DRG 720 ==
LOC: 3BNU 16:41 → EMEROO 16:41 → 3BNU 19:22
PROVIDERS: ADMIT Family Medicine; ATTEND Nurse Practitioner Family

== ENCOUNTER 2018-11-22 09:07 | Inpatient (IN) ==
[2018-11-22] MEDS ORDERED: Ondansetron 4 MG/2 ML VIAL ONE (09:11)
[2018-11-22] MEDS ORDERED: 0.9 % Sodium Chloride 2,000 ML ONE (09:12)
--- NOTE | 2018-11-22 09:25 | Emergency Department Note ---
Disposition Clinical Impression: DKA (diabetic ketoacidoses) Qualifiers: Diabetes mellitus type: type 1 Diabetes mellitus complication detail: without coma Qualified Code(s): E10.10 - Type 1 diabetes mellitus with ketoacidosis without coma Disposition: Admitted As Inpatient Condition: Fair Time of Disposition: 11:20 General Adult HPI - General Stated complaint: high blood sugar Time Seen by Provider: 11/22/18 09:08 Source: patient Mode of arrival: EMS Limitations: no limitations Nursing Notes Reviewed: Yes Vital Signs Reviewed: Yes - History of Present Illness HPI Narrative: 48-year-old female arrives by EMS for evaluation of nausea, vomiting, and elevated blood glucose levels above 400. She is a type I diabetic, managed with an insulin pump. She states that yesterday, she developed severe nausea. This has progressed to intractable vomiting at home. She denies any fever, chills, or urinary complaints. She does describe a nonproductive cough. She denies any abdominal pain but does describe some low back pain which she attributes to the retching from vomiting. She was given 4 mg of Zofran by IV push in route to the emergency department by EMS personnel. Pt Subjective Complaint: Nausea, vomiting, elevated blood glucose levels Onset (ago): day(s) (2 days ago) Associated symptoms: Reports: cough, nausea/vomiting. Denies: fever/chills Treatments Prior to Arrival: other - Related Data Home Medications Medication Instructions Recorded Confirmed Citalopram Hydrobromide 40 mg PO DAILY 09/13/16 11/22/18 [Citalopram HBr] Insulin ASPART [NovoLOG] 0 unit SQ AD 09/13/16 11/22/18 Levothyroxine [Synthroid] 150 mcg PO QAM 09/13/16 11/22/18 Lisinopril 2.5 mg PO DAILY 09/13/16 11/22/18 Albuterol Sulfate [Albuterol 2 puff IH Q6H PRN 11/22/18 11/22/18 Inhaler] Clindamycin Phosphate [Clindagel] 1 appl TP BID 11/22/18 11/22/18 Gabapentin [Neurontin] 800 mg PO BID 11/22/18 11/22/18 Loratadine [Claritin] 10 mg PO DAILY 11/22/18 11/22/18 Melatonin [Vitajoy] 10 mg PO HS 11/22/18 11/22/18 Omeprazole [PriLOSEC] 40 mg PO DAILY 11/22/18 11/22/18 Rosuvastatin Calcium [Crestor] 40 mg PO DAILY 11/22/18 11/22/18 Allergies Allergy/AdvReac Type Severity Reaction Status Date / Time No Known Allergies Allergy Verified 11/22/18 10:35 All systems ED: reviewed and negative except as stated. Review of Systems: As Per HPI Constitutional: Denies: fever, chills, weakness, weight change Eyes: Denies: eye pain, eye discharge, vision change ENT ED: Denies: ear pain, throat pain, dental pain, hearing loss, epistaxis, congestion, dysphagia Cardiovascular: Denies: chest pain, palpitations, dyspnea on exertion, edema, syncope Respiratory: Reports: as per HPI, cough. Denies: dyspnea, wheezes, hemoptysis, stridor Gastrointestinal: Reports: as per HPI, nausea. Denies: abdominal pain, vomiting, diarrhea, constipation, hematemesis, melena, hematochezia Genitourinary: Denies: dysuria, frequency, hematuria, discharge Musculoskeletal: Reports: as per HPI, back pain. Denies: neck pain, arthralgia, myalgia Integumentary: Denies: rash, abrasion, lesions Neurological: Denies: headache, weakness, numbness, paresthesias, confusion, a bnormal gait, vertigo Psychiatric: Denies: anxiety, depression, suicidal thoughts, homicidal thoughts, auditory hallucinations, visual hallucinations Endocrine: Denies: fatigue Hematological/Lymphatic: Denies: easy bleeding, easy bruising Allergic/Immunologic: Denies: facial swelling, urticaria Past Medical History - Past Medical History Attestation: Yes The following information was validated with the patient. Source: patient, nursing notes reviewed Medical history: Reports: diabetes Surgical history: Reports: other (tubal ligation), vascular surgery (angioplasty to bilateral lower extremities) Psychiatric history: Reports: anxiety, depression [employer] history: Reports: bilateral tubal ligation - Social History Smoking Status: Current every day smoker Smokeless Tobacco Status: No Alcohol use: Reports: none Drug use: Reports: marijuana Physical Exam - General Limitations: no limitations General appearance: alert - Head Head exam: atraumatic, normocephalic, normal inspection - Eye Eye exam: Present: normal appearance, PERRL, EOMI. Absent: nystagmus - ENT ENT exam: mucous membranes dry - Neck Neck exam: Present: normal inspection, full ROM - Chest Chest inspection: Present: normal inspection, symmetric chest wall rise - Respiratory Respiratory exam: Present: normal lung sounds bilaterally. Absent: respiratory distress, wheezes, stridor, accessory muscle use, prolonged expiratory phase - Cardiovascular Cardiovascular exam: Present: normal rhythm, tachycardia, normal heart sounds - Abdominal Exam Abdominal exam: Present: soft, Non-Tender, normal bowel sounds - Extremities Exam Extremities exam: Present: normal inspection, full ROM - Neurological Exam Neurological exam: Present: alert, oriented X3 - Psychiatric Psychiatric exam: Present: normal affect, normal mood - Skin Skin exam: Present: warm, dry, intact, normal color. Absent: cyanosis, diaphoresis, pallor, mottled Course Course Narrative: I have spoken with Dr. Dailey, admitting hospitalist who has accepted the patient for admission to the hospitalist care. Patient staffed with Dr. Ly. Dr. Ly agrees with this plan. Vital Signs Temperature 96.8 F L 11/22/18 09:22 Pulse Rate 82 11/22/18 09:22 Respiratory Rate 27 11/22/18 09:22 Blood Pressure 126/108 11/22/18 09:22 O2 Sat by Pulse Oximetry 98 11/22/18 09:22 Temperature 97.7 F 11/22/18 10:57 Pulse Rate 108 11/22/18 10:57 Respiratory Rate 20 11/22/18 10:57 Blood Pressure 125/94 11/22/18 10:57 O2 Sat by Pulse Oximetry 100 11/22/18 10:57 Oxygen Delivery Oxygen Delivery Room Air Medical Decision Making - Medical Records Medical records reviewed: Yes I reviewed the patient's medical records. - Lab Data Lab results reviewed: Yes I reviewed the patient's lab results. Lab results narrative: Lab Results 11/22/18 11/22/18 11/22/18 Range/Units 09:32 09:34 09:35 WBC 16.7 H (4.3-11.1) K/mcL RBC 5.63 H (3.82-4.97) M/mcL Hgb 17.4 H (11.5-15.4) g/dL Hct 50.8 H (35.3-44.9) % MCV 90.2 (83.0-100.0) fL MCH 30.9 (28.0-33.3) pg MCHC 34.3 (31.6-35.5) g/dL RDW 12.9 (11.5-14.5) % Plt Count 223 (140-400) K/mcL MPV 12.4 (9.4-12.4) fL Immature Gran % 0.9 (0-4) % Seg Neutrophils % 87.4 % Lymphocytes % 8.7 % Monocytes % 2.2 % Eosinophils % 0.1 % Basophils % 0.7 % Neutrophils # 14.6 H (1.6-8.9) K/mcL Lymphocytes # 1.5 (0.6-4.6) K/mcL Monocytes # 0.4 (0.0-1.3) K/mcL Eosinophils # 0.0 (0.0-0.6) K/mcL Basophils # 0.1 (0.0-0.2) K/mcL VBG pH (7.32-7.42) pH Units VBG pCO2 (41-51) mmHg VBG pO2 (25-50) mmHg VBG HCO3 (21-27) mEq/L Sodium (136-145) mEq/L Potassium (3.5-5.1) mEq/L Chloride (98-107) mEq/L Carbon Dioxide (23-29) mEq/L BUN (6-20) mg/dL Creatinine (0.60-1.20) mg/dL Est GFR ( Amer) (> 60) Est GFR (Non-Af Amer) (> 60) BUN/Creatinine Ratio (6-26) Glucose (70-105) mg/dL POC Glucose 477 H* 444 H* (70-99) mg/dL Calculated Osmolality (280-300) Lactic Acid (0.5-2.2) mmol/L Calcium (8.6-10.3) mg/dL Phosphorus (2.7-4.5) mg/dL Magnesium (1.6-2.6) mg/dL Total Bilirubin (0.3-1.0) mg/dL AST (13-39) Units/L ALT (7-52) Units/L Alkaline Phosphatase (34-104) Units/L Serum Total Protein (6.4-8.9) g/dL Albumin (3.5-5.7) g/dL Globulin (2.4-3.5) g/dL Albumin/Globulin Ratio (1.1-2.2) Beta-Hydroxybutyric Acd (0.02-0.27) mmol/L Urine Color (Yellow) Urine Clarity (Clear) Urine pH (5.0-8.0) pH Units Ur Specific [place] (1.010-1.025) Urine Protein (Neg-Trace) mg/dL Urine Glucose (UA) (Normal) mg/dL Urine Ketones (Negative) mg/dL Urine Blood (Negative) Urine Nitrite (Negative) Urine Bilirubin (Negative) Urine Urobilinogen (Normal) mg/dL Ur Leukocyte Esterase (Negative) Urine Microscopic RBC (0-3) per hpf Urine Microscopic WBC (0-3) per hpf Ur Squamous Epith Cells (None-Few) per lpf Urine Bacteria (None-Few) per hpf Hyaline Casts (None-Few) per lpf Ur Culture Indicated? (NO) Person Notif of Crit 11/22/18 11/22/18 11/22/18 Range/Units 09:35 09:35 09:35 WBC (4.3-11.1) K/mcL RBC (3.82-4.97) M/mcL Hgb (11.5-15.4) g/dL Hct (35.3-44.9) % MCV (83.0-100.0) fL MCH (28.0-33.3) pg MCHC (31.6-35.5) g/dL RDW (11.5-14.5) % Plt Count (140-400) K/mcL MPV (9.4-12.4) fL Immature Gran % (0-4) % Seg Neutrophils % % Lymphocytes % % Monocytes % % Eosinophils % % Basophils % % Neutrophils # (1.6-8.9) K/mcL Lymphocytes # (0.6-4.6) K/mcL Monocytes # (0.0-1.3) K/mcL Eosinophils # (0.0-0.6) K/mcL Basophils # (0.0-0.2) K/mcL VBG pH (7.32-7.42) pH Units VBG pCO2 (41-51) mmHg VBG pO2 (25-50) mmHg VBG HCO3 (21-27) mEq/L Sodium 131 L (136-145) mEq/L Potassium 4.7 (3.5-5.1) mEq/L Chloride 99 (98-107) mEq/L Carbon Dioxide 11 L (23-29) mEq/L BUN 19 (6-20) mg/dL Creatinine 0.87 (0.60-1.20) mg/dL Est GFR ( Amer) > 60 (> 60) Est GFR (Non-Af Amer) > 60 (> 60) BUN/Creatinine Ratio 22 (6-26) Glucose 472 H (70-105) mg/dL POC Glucose (70-99) mg/dL Calculated Osmolality 295 (280-300) Lactic Acid 3.5 H (0.5-2.2) mmol/L Calcium 9.8 (8.6-10.3) mg/dL Phosphorus 3.7 (2.7-4.5) mg/dL Magnesium 1.8 (1.6-2.6) mg/dL Total Bilirubin 0.8 (0.3-1.0) mg/dL AST 22 (13-39) Units/L ALT 10 (7-52) Units/L Alkaline Phosphatase 135 H (34-104) Units/L Serum Total Protein 8.2 (6.4-8.9) g/dL Albumin 4.5 (3.5-5.7) g/dL Globulin 3.7 H (2.4-3.5) g/dL Albumin/Globulin Ratio 1.2 (1.1-2.2) Beta-Hydroxybutyric Acd > 2.00 H (0.02-0.27) mmol/L Urine Color (Yellow) Urine Clarity (Clear) Urine pH (5.0-8.0) pH Units Ur Specific [place] (1.010-1.025) Urine Protein (Neg-Trace) mg/dL Urine Glucose (UA) (Normal) mg/dL Urine Ketones (Negative) mg/dL Urine Blood (Negative) Urine Nitrite (Negative) Urine Bilirubin (Negative) Urine Urobilinogen (Normal) mg/dL Ur Leukocyte Esterase (Negative) Urine Microscopic RBC (0-3) per hpf Urine Microscopic WBC (0-3) per hpf Ur Squamous Epith Cells (None-Few) per lpf Urine Bacteria (None-Few) per hpf Hyaline Casts (None-Few) per lpf Ur Culture Indicated? (NO) Person Notif of Crit 11/22/18 11/22/18 11/22/18 Range/Units 09:43 09:59 10:34 WBC (4.3-11.1) K/mcL RBC (3.82-4.97) M/mcL Hgb (11.5-15.4) g/dL Hct (35.3-44.9) % MCV (83.0-100.0) fL MCH (28.0-33.3) pg MCHC (31.6-35.5) g/dL RDW (11.5-14.5) % Plt Count (140-400) K/mcL MPV (9.4-12.4) fL Immature Gran % (0-4) % Seg Neutrophils % % Lymphocytes % % Monocytes % % Eosinophils % % Basophils % % Neutrophils # (1.6-8.9) K/mcL Lymphocytes # (0.6-4.6) K/mcL Monocytes # (0.0-1.3) K/mcL Eosinophils # (0.0-0.6) K/mcL Basophils # (0.0-0.2) K/mcL VBG pH 7.17 L* (7.32-7.42) pH Units VBG pCO2 30 L (41-51) mmHg VBG pO2 87 H (25-50) mmHg VBG HCO3 11 L (21-27) mEq/L Sodium (136-145) mEq/L Potassium (3.5-5.1) mEq/L Chloride (98-107) mEq/L Carbon Dioxide (23-29) mEq/L BUN (6-20) mg/dL Creatinine (0.60-1.20) mg/dL Est GFR ( Amer) (> 60) Est GFR (Non-Af Amer) (> 60) BUN/Creatinine Ratio (6-26) Glucose (70-105) mg/dL POC Glucose 384 H (70-99) mg/dL Calculated Osmolality (280-300) Lactic Acid (0.5-2.2) mmol/L Calcium (8.6-10.3) mg/dL Phosphorus (2.7-4.5) mg/dL Magnesium (1.6-2.6) mg/dL Total Bilirubin (0.3-1.0) mg/dL AST (13-39) Units/L ALT (7-52) Units/L Alkaline Phosphatase (34-104) Units/L Serum Total Protein (6.4-8.9) g/dL Albumin (3.5-5.7) g/dL Globulin (2.4-3.5) g/dL Albumin/Globulin Ratio (1.1-2.2) Beta-Hydroxybutyric Acd (0.02-0.27) mmol/L Urine Color Yellow (Yellow) Urine Clarity Clear (Clear) Urine pH 5.5 (5.0-8.0) pH Units Ur Specific [place] > 1.030 H (1.010-1.025) Urine Protein 30 H (Neg-Trace) mg/dL Urine Glucose (UA) >=1000 H (Normal) mg/dL Urine Ketones >=160 H (Negative) mg/dL Urine Blood Negative (Negative) Urine Nitrite Negative (Negative) Urine Bilirubin Negative (Negative) Urine Urobilinogen Normal (Normal) mg/dL Ur Leukocyte Esterase Negative (Negative) Urine Microscopic RBC 0-3 (0-3) per hpf Urine Microscopic WBC 0-3 (0-3) per hpf Ur Squamous Epith Cells Many H (None-Few) per lpf Urine Bacteria None Seen (None-Few) per hpf Hyaline Casts None Seen (None-Few) per lpf Ur Culture Indicated? NO (NO) Person Notif of Isak SAM NEAL 11/22/18 Range/Units 10:36 WBC (4.3-11.1) K/mcL RBC (3.82-4.97) M/mcL Hgb (11.5-15.4) g/dL Hct (35.3-44.9) % MCV (83.0-100.0) fL MCH (28.0-33.3) pg MCHC (31.6-35.5) g/dL RDW (11.5-14.5) % Plt Count (140-400) K/mcL MPV (9.4-12.4) fL Immature Gran % (0-4) % Seg Neutrophils % % Lymphocytes % % Monocytes % % Eosinophils % % Basophils % % Neutrophils # (1.6-8.9) K/mcL Lymphocytes # (0.6-4.6) K/mcL Monocytes # (0.0-1.3) K/mcL Eosinophils # (0.0-0.6) K/mcL Basophils # (0.0-0.2) K/mcL VBG pH (7.32-7.42) pH Units VBG pCO2 (41-51) mmHg VBG pO2 (25-50) mmHg VBG HCO3 (21-27) mEq/L Sodium (136-145) mEq/L Potassium (3.5-5.1) mEq/L Chloride (98-107) mEq/L Carbon Dioxide (23-29) mEq/L BUN (6-20) mg/dL Creatinine (0.60-1.20) mg/dL Est GFR ( Amer) (> 60) Est GFR (Non-Af Amer) (> 60) BUN/Creatinine Ratio (6-26) Glucose (70-105) mg/dL POC Glucose 348 H (70-99) mg/dL Calculated Osmolality (280-300) Lactic Acid (0.5-2.2) mmol/L Calcium (8.6-10.3) mg/dL Phosphorus (2.7-4.5) mg/dL Magnesium (1.6-2.6) mg/dL Total Bilirubin (0.3-1.0) mg/dL AST (13-39) Units/L ALT (7-52) Units/L Alkaline Phosphatase (34-104) Units/L Serum Total Protein (6.4-8.9) g/dL Albumin (3.5-5.7) g/dL Globulin (2.4-3.5) g/dL Albumin/Globulin Ratio (1.1-2.2) Beta-Hydroxybutyric Acd (0.02-0.27) mmol/L Urine Color (Yellow) Urine Clarity (Clear) Urine pH (5.0-8.0) pH Units Ur Specific [place] (1.010-1.025) Urine Protein (Neg-Trace) mg/dL Urine Glucose (UA) (Normal) mg/dL Urine Ketones (Negative) mg/dL Urine Blood (Negative) Urine Nitrite (Negative) Urine Bilirubin (Negative) Urine Urobilinogen (Normal) mg/dL Ur Leukocyte Esterase (Negative) Urine Microscopic RBC (0-3) per hpf Urine Microscopic WBC (0-3) per hpf Ur Squamous Epith Cells (None-Few) per lpf Urine Bacteria (None-Few) per hpf Hyaline Casts (None-Few) per lpf Ur Culture Indicated? (NO) Person Notif of Crit Result diagrams: 11/22/18 09:35 11/22/18 09:35 Lab Results 11/22/18 11/22/18 11/22/18 Range/Units 09:32 09:34 09:35 WBC 16.7 H (4.3-11.1) K/mcL RBC 5.63 H (3.82-4.97) M/mcL Hgb 17.4 H (11.5-15.4) g/dL Hct 50.8 H (35.3-44.9) % MCV 90.2 (83.0-100.0) fL MCH 30.9 (28.0-33.3) pg MCHC 34.3 (31.6-35.5) g/dL RDW 12.9 (11.5-14.5) % Plt Count 223 (140-400) K/mcL MPV 12.4 (9.4-12.4) fL Immature Gran % 0.9 (0-4) % Seg Neutrophils % 87.4 % Lymphocytes % 8.7 % Monocytes % 2.2 % Eosinophils % 0.1 % Basophils % 0.7 % Neutrophils # 14.6 H (1.6-8.9) K/mcL Lymphocytes # 1.5 (0.6-4.6) K/mcL Monocytes # 0.4 (0.0-1.3) K/mcL Eosinophils # 0.0 (0.0-0.6) K/mcL Basophils # 0.1 (0.0-0.2) K/mcL VBG pH (7.32-7.42) pH Units VBG pCO2 (41-51) mmHg VBG pO2 (25-50) mmHg VBG HCO3 (21-27) mEq/L Sodium (136-145) mEq/L Potassium (3.5-5.1) mEq/L Chloride (98-107) mEq/L Carbon Dioxide (23-29) mEq/L BUN (6-20) mg/dL Creatinine (0.60-1.20) mg/dL Est GFR ( Amer) (> 60) Est GFR (Non-Af Amer) (> 60) BUN/Creatinine Ratio (6-26) Glucose (70-105) mg/dL POC Glucose 477 H* 444 H* (70-99) mg/dL Calculated Osmolality (280-300) Lactic Acid (0.5-2.2) mmol/L Calcium (8.6-10.3) mg/dL Phosphorus (2.7-4.5) mg/dL Magnesium (1.6-2.6) mg/dL Total Bilirubin (0.3-1.0) mg/dL AST (13-39) Units/L ALT (7-52) Units/L Alkaline Phosphatase (34-104) Units/L Serum Total Protein (6.4-8.9) g/dL Albumin (3.5-5.7) g/dL Globulin (2.4-3.5) g/dL Albumin/Globulin Ratio (1.1-2.2) Beta-Hydroxybutyric Acd (0.02-0.27) mmol/L Urine Color (Yellow) Urine Clarity (Clear) Urine pH (5.0-8.0) pH Units Ur Specific [place] (1.010-1.025) Urine Protein (Neg-Trace) mg/dL Urine Glucose (UA) (Normal) mg/dL Urine Ketones (Negative) mg/dL Urine Blood (Negative) Urine Nitrite (Negative) Urine Bilirubin (Negative) Urine Urobilinogen (Normal) mg/dL Ur Leukocyte Esterase (Negative) Urine Microscopic RBC (0-3) per hpf Urine Microscopic WBC (0-3) per hpf Ur Squamous Epith Cells (None-Few) per lpf Urine Bacteria (None-Few) per hpf Hyaline Casts (None-Few) per lpf Ur Culture Indicated? (NO) Person Notif of Crit 11/22/18 11/22/18 11/22/18 Range/Units 09:35 09:35 09:35 WBC (4.3-11.1) K/mcL RBC (3.82-4.97) M/mcL Hgb (11.5-15.4) g/dL Hct (35.3-44.9) % MCV (83.0-100.0) fL MCH (28.0-33.3) pg MCHC (31.6-35.5) g/dL RDW (11.5-14.5) % Plt Count (140-400) K/mcL MPV (9.4-12.4) fL Immature Gran % (0-4) % Seg Neutrophils % % Lymphocytes % % Monocytes % % Eosinophils % % Basophils % % Neutrophils # (1.6-8.9) K/mcL Lymphocytes # (0.6-4.6) K/mcL Monocytes # (0.0-1.3) K/mcL Eosinophils # (0.0-0.6) K/mcL Basophils # (0.0-0.2) K/mcL VBG pH (7.32-7.42) pH Units VBG pCO2 (41-51) mmHg VBG pO2 (25-50) mmHg VBG HCO3 (21-27) mEq/L Sodium 131 L (136-145) mEq/L Potassium 4.7 (3.5-5.1) mEq/L Chloride 99 (98-107) mEq/L Carbon Dioxide 11 L (23-29) mEq/L BUN 19 (6-20) mg/dL Creatinine 0.87 (0.60-1.20) mg/dL Est GFR ( Amer) > 60 (> 60) Est GFR (Non-Af Amer) > 60 (> 60) BUN/Creatinine Ratio 22 (6-26) Glucose 472 H (70-105) mg/dL POC Glucose (70-99) mg/dL Calculated Osmolality 295 (280-300) Lactic Acid 3.5 H (0.5-2.2) mmol/L Calcium 9.8 (8.6-10.3) mg/dL Phosphorus 3.7 (2.7-4.5) mg/dL Magnesium 1.8 (1.6-2.6) mg/dL Total Bilirubin 0.8 (0.3-1.0) mg/dL AST 22 (13-39) Units/L ALT 10 (7-52) Units/L Alkaline Phosphatase 135 H (34-104) Units/L Serum Total Protein 8.2 (6.4-8.9) g/dL Albumin 4.5 (3.5-5.7) g/dL Globulin 3.7 H (2.4-3.5) g/dL Albumin/Globulin Ratio 1.2 (1.1-2.2) Beta-Hydroxybutyric Acd > 2.00 H (0.02-0.27) mmol/L Urine Color (Yellow) Urine Clarity (Clear) Urine pH (5.0-8.0) pH Units Ur Specific [place] (1.010-1.025) Urine Protein (Neg-Trace) mg/dL Urine Glucose (UA) (Normal) mg/dL Urine Ketones (Negative) mg/dL Urine Blood (Negative) Urine Nitrite (Negative) Urine Bilirubin (Negative) Urine Urobilinogen (Normal) mg/dL Ur Leukocyte Esterase (Negative) Urine Microscopic RBC (0-3) per hpf Urine Microscopic WBC (0-3) per hpf Ur Squamous Epith Cells (None-Few) per lpf Urine Bacteria (None-Few) per hpf Hyaline Casts (None-Few) per lpf Ur Culture Indicated? (NO) Person Notif of Crit 11/22/18 11/22/18 11/22/18 Range/Units 09:43 09:59 10:34 WBC (4.3-11.1) K/mcL RBC (3.82-4.97) M/mcL Hgb (11.5-15.4) g/dL Hct (35.3-44.9) % MCV (83.0-100.0) fL MCH (28.0-33.3) pg MCHC (31.6-35.5) g/dL RDW (11.5-14.5) % Plt Count (140-400) K/mcL MPV (9.4-12.4) fL Immature Gran % (0-4) % Seg Neutrophils % % Lymphocytes % % Monocytes % % Eosinophils % % Basophils % % Neutrophils # (1.6-8.9) K/mcL Lymphocytes # (0.6-4.6) K/mcL Monocytes # (0.0-1.3) K/mcL Eosinophils # (0.0-0.6) K/mcL Basophils # (0.0-0.2) K/mcL VBG pH 7.17 L* (7.32-7.42) pH Units VBG pCO2 30 L (41-51) mmHg VBG pO2 87 H (25-50) mmHg VBG HCO3 11 L (21-27) mEq/L Sodium (136-145) mEq/L Potassium (3.5-5.1) mEq/L Chloride (98-107) mEq/L Carbon Dioxide (23-29) mEq/L BUN (6-20) mg/dL Creatinine (0.60-1.20) mg/dL Est GFR ( Amer) (> 60) Est GFR (Non-Af Amer) (> 60) BUN/Creatinine Ratio (6-26) Glucose (70-105) mg/dL POC Glucose 384 H (70-99) mg/dL Calculated Osmolality (280-300) Lactic Acid (0.5-2.2) mmol/L Calcium (8.6-10.3) mg/dL Phosphorus (2.7-4.5) mg/dL Magnesium (1.6-2.6) mg/dL Total Bilirubin (0.3-1.0) mg/dL AST (13-39) Units/L ALT (7-52) Units/L Alkaline Phosphatase (34-104) Units/L Serum Total Protein (6.4-8.9) g/dL Albumin (3.5-5.7) g/dL Globulin (2.4-3.5) g/dL Albumin/Globulin Ratio (1.1-2.2) Beta-Hydroxybutyric Acd (0.02-0.27) mmol/L Urine Color Yellow (Yellow) Urine Clarity Clear (Clear) Urine pH 5.5 (5.0-8.0) pH Units Ur Specific [place] > 1.030 H (1.010-1.025) Urine Protein 30 H (Neg-Trace) mg/dL Urine Glucose (UA) >=1000 H (Normal) mg/dL Urine Ketones >=160 H (Negative) mg/dL Urine Blood Negative (Negative) Urine Nitrite Negative (Negative) Urine Bilirubin Negative (Negative) Urine Urobilinogen Normal (Normal) mg/dL Ur Leukocyte Esterase Negative (Negative) Urine Microscopic RBC 0-3 (0-3) per hpf Urine Microscopic WBC 0-3 (0-3) per hpf Ur Squamous Epith Cells Many H (None-Few) per lpf Urine Bacteria None Seen (None-Few) per hpf Hyaline Casts None Seen (None-Few) per lpf Ur Culture Indicated? NO (NO) Person Notif of Isak DE JESUS 11/22/18 Range/Units 10:36 WBC (4.3-11.1) K/mcL RBC (3.82-4.97) M/mcL Hgb (11.5-15.4) g/dL Hct (35.3-44.9) % MCV (83.0-100.0) fL MCH (28.0-33.3) pg MCHC (31.6-35.5) g/dL RDW (11.5-14.5) % Plt Count (140-400) K/mcL MPV (9.4-12.4) fL Immature Gran % (0-4) % Seg Neutrophils % % Lymphocytes % % Monocytes % % Eosinophils % % Basophils % % Neutrophils # (1.6-8.9) K/mcL Lymphocytes # (0.6-4.6) K/mcL Monocytes # (0.0-1.3) K/mcL Eosinophils # (0.0-0.6) K/mcL Basophils # (0.0-0.2) K/mcL VBG pH (7.32-7.42) pH Units VBG pCO2 (41-51) mmHg VBG pO2 (25-50) mmHg VBG HCO3 (21-27) mEq/L Sodium (136-145) mEq/L Potassium (3.5-5.1) mEq/L Chloride (98-107) mEq/L Carbon Dioxide (23-29) mEq/L BUN (6-20) mg/dL Creatinine (0.60-1.20) mg/dL Est GFR ( Amer) (> 60) Est GFR (Non-Af Amer) (> 60) BUN/Creatinine Ratio (6-26) Glucose (70-105) mg/dL POC Glucose 348 H (70-99) mg/dL Calculated Osmolality (280-300) Lactic Acid (0.5-2.2) mmol/L Calcium (8.6-10.3) mg/dL Phosphorus (2.7-4.5) mg/dL Magnesium (1.6-2.6) mg/dL Total Bilirubin (0.3-1.0) mg/dL AST (13-39) Units/L ALT (7-52) Units/L Alkaline Phosphatase (34-104) Units/L Serum Total Protein (6.4-8.9) g/dL Albumin (3.5-5.7) g/dL Globulin (2.4-3.5) g/dL Albumin/Globulin Ratio (1.1-2.2) Beta-Hydroxybutyric Acd (0.02-0.27) mmol/L Urine Color (Yellow) Urine Clarity (Clear) Urine pH (5.0-8.0) pH Units Ur Specific [place] (1.010-1.025) Urine Protein (Neg-Trace) mg/dL Urine Glucose (UA) (Normal) mg/dL Urine Ketones (Negative) mg/dL Urine Blood (Negative) Urine Nitrite (Negative) Urine Bilirubin (Negative) Urine Urobilinogen (Normal) mg/dL Ur Leukocyte Esterase (Negative) Urine Microscopic RBC (0-3) per hpf Urine Microscopic WBC (0-3) per hpf Ur Squamous Epith Cells (None-Few) per lpf Urine Bacteria (None-Few) per hpf Hyaline Casts (None-Few) per lpf Ur Culture Indicated? (NO) Person Notif of Crit - Radiology Data Radiology results reviewed: Yes I reviewed the patient's radiology results. Chest X-Ray 11/22/18 09:13 IMPRESSION: Stable appearing chest without acute cardiopulmonary process. D/ / Johnie Snow MD / Johnie Snow MD Interpreting Provider: Johnie Snow MD - EKG Data EKG #1 EKG attestation: Yes I reviewed and interpreted this EKG. EKG results narrative: EKG shows a sinus rhythm at a rate of 80 bpm. [place] interval 1, QRS duration 110, QT/QTc interval 413/477. No ectopy noted. No ST elevation or significant depressions. No significant change in morphology when compared to an EKG dated from 06/02/18.
--- NOTE | 2018-11-22 09:25 | Emergency Department Note ---
Disposition Clinical Impression: DKA (diabetic ketoacidoses) Qualifiers: Diabetes mellitus type: type 1 Diabetes mellitus complication detail: without coma Qualified Code(s): E10.10 - Type 1 diabetes mellitus with ketoacidosis without coma Disposition: Still a Patient General Adult HPI - General Stated complaint: high blood sugar Time Seen by Provider: 11/22/18 09:08 Nursing Notes Reviewed: Yes Vital Signs Reviewed: Yes - History of Present Illness HPI Narrative: ED attending attestation note: I examined this patient and my medical decision-making was reviewed with the emergency nurse practitioner Daniel Escobedo. I agree with the documented findings, disposition and treatment plan as described except to the extent set forth below. Briefly: 48-year-old female by EMS for elevated blood sugar and vomiting. Patient has history of diabetes smell of ketones in the room strongly suggest possibility of acute diabetic ketoacidosis. Patient has an emesis bag and she has been vomiting has dry cracked lips dry oral mucosa tachycardic patient will undergo saline boluses screening labs eventually insulin drip with beta hydroxybutyrate level and admission. Providing 45 minutes critical care service for this patient. Disposition pending - Related Data Home Medications Medication Instructions Recorded Confirmed Citalopram Hydrobromide 40 mg PO DAILY 09/13/16 08/08/18 [Citalopram HBr] Insulin ASPART [NovoLOG] 0 unit SQ AD 09/13/16 08/08/18 Levothyroxine [Synthroid] 150 mcg PO DAILY 09/13/16 08/08/18 Lisinopril 2.5 mg PO DAILY 09/13/16 08/08/18 Melatonin 2.5 mg PO HS 09/13/16 08/08/18 Omeprazole [PriLOSEC] 40 mg PO DAILY 09/13/16 08/08/18 Pregabalin [Lyrica] 150 mg PO BID 09/13/16 08/08/18 Rosuvastatin Calcium 40 mg PO DAILY 09/13/16 08/08/18 Tizanidine HCl 4 mg PO TID PRN 09/13/16 08/08/18 Tramadol HCl 50 mg PO TID PRN 09/13/16 08/08/18 Previous Rx's Medication Instructions Recorded Albuterol Sulfate [Albuterol 2 puff IH Q4HR PRN #1 hfa.aer.ad 09/15/16 Inhaler] GuaiFENesin ER [Mucinex] 600 mg PO BID #14 tbbp.12hr 09/15/16 Promethazine [Phenergan] 12.5 mg PO Q6HR PRN #15 tablet 09/15/16 levoFLOXacin [Levofloxacin] 750 mg PO DAILY #7 tablet 09/15/16 Fluticasone/Vilanterol [Breo 1 each IH DAILY #1 blst.w.dev 09/16/16 Ellipta 100-25 Mcg INH] Moxifloxacin OPTH Drops [Vigamox] 1 drop LEFT EYE BID #1 bottle 01/27/17 Sulfamethoxazole/Trimeth DS 1 each PO BID 10 Days tablet 05/27/17 [Bactrim DS] Ondansetron ODT [Zofran ODT] 4 mg SL Q6HR PRN #10 tab.rapdis 08/10/17 Azithromycin [Zithromax] 0 mg PO Q24H #6 tablet 08/08/18 Promethazine/Dextromethorphan 5 - 10 ml PO QID PRN #120 syrup 08/08/18 [Promethazine-Dm Syrup] Allergies Allergy/AdvReac Type Severity Reaction Status Date / Time No Known Allergies Allergy Verified 08/08/18 16:07 Past Medical History - Past Medical History Medical history: Reports: diabetes Surgical history: Reports: other (tubal ligation), vascular surgery (angioplasty to bilateral lower extremities) Psychiatric history: Reports: anxiety, depression 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
[2018-11-22] MEDS: 0.9 % Sodium Chloride 1,000 ML IVC SCH ×3 (09:43→22:11)
[2018-11-22] MEDS ORDERED: *HR* FentaNYL (PF) 100 MCG/2 ML VIAL IVP ONE (09:51)
[2018-11-22] MEDS ORDERED: Promethazine 25 MG in 0.9 % Sodium Chloride 50 ML IVPB ONE (09:51)
[2018-11-22 09:56] LABS: Basophils # 0.1 K/mcL (0.0-0.2); Basophils % 0.7 %; Eosinophils % 0.1 %; Hematocrit 50.8 % (35.3-44.9); Hemoglobin 17.4 g/dL (11.5-15.4); Immature Granulocytes % 0.9 % (0-4); Lymphocytes # 1.5 K/mcL (0.6-4.6); Lymphocytes % 8.7 %; Mean Corpuscular HGB Conc 34.3 g/dL (31.6-35.5); Mean Corpuscular Hemoglobin 30.9 pg (28.0-33.3); Mean Corpuscular Volume 90.2 fL (83.0-100.0); Mean Platelet Volume 12.4 fL (9.4-12.4); Monocytes # 0.4 K/mcL (0.0-1.3); Monocytes % 2.2 %; Neutrophils # 14.6 K/mcL (1.6-8.9); Platelet Count 223 K/mcL (140-400); Red Blood Count 5.63 M/mcL (3.82-4.97); Red Cell Distribution Width 12.9 % (11.5-14.5); Segmented Neutrophils % 87.4 %
[2018-11-22 10:00] LABS: Bilirubin,Urine Negative (Negative); Blood,Urine Negative (Negative); Clarity,Urine Clear (Clear); Color,Urine Yellow (Yellow); Glucose,Urine (UA) >=1000 mg/dL (Normal); Ketones,Urine >=160 mg/dL (Negative); Leukocyte Esterase,Urine Negative (Negative); Nitrite,Urine Negative (Negative); PH,Urine 5.5 pH Units (5.0-8.0); Protein,Urine 30 mg/dL (Neg-Trace); Specific Gravity,Urine > 1.030 (1.010-1.025); Urobilinogen,Urine Normal (Normal)
[2018-11-22 10:02] LABS: Bacteria,Urine None Seen per hpf (None-Few); Hyaline Casts,Urine None Seen per lpf (None-Few); RBC,Urine 0-3 per hpf (0-3); Squamous Epithelial Cell,Urine Many per lpf (None-Few); WBC,Urine 0-3 per hpf (0-3)
[2018-11-22 10:04] LABS: VBG HCO3 11 mEq/L (21-27); VBG PCO2 30 mmHg (41-51); VBG PH 7.17 pH Units (7.32-7.42); VBG PO2 87 mmHg (25-50)
[2018-11-22] MEDS ORDERED: Sodium Bicarbonate 50 MEQ/50 ML VIAL IVP ONE (10:08)
[2018-11-22] MEDS ORDERED: 0.9 % Sodium Chloride 1,000 ML IVC ONE ×2 (10:08→12:38)
[2018-11-22 11:04] LABS: Alanine Aminotransferase 10 Units/L (7-52); Albumin 4.5 g/dL (3.5-5.7); Albumin/Globulin Ratio 1.2 (1.1-2.2); Alkaline Phosphatase 135 Units/L (34-104); Aspartate Amino Transferase 22 Units/L (13-39); BUN/Creatinine Ratio 22 (6-26); Bilirubin,Total 0.8 mg/dL (0.3-1.0); Blood Urea Nitrogen 19 mg/dL (6-20); Calcium 9.8 mg/dL (8.6-10.3); Carbon Dioxide 11 mEq/L (23-29); Chloride 99 mEq/L (98-107); Globulin 3.7 g/dL (2.4-3.5); Glucose 472 mg/dL (70-105); Magnesium 1.8 mg/dL (1.6-2.6); Osmolality,Calculated 295 (280-300); Phosphorous 3.7 mg/dL (2.7-4.5); Potassium 4.7 mEq/L (3.5-5.1); Sodium 131 mEq/L (136-145); Total Protein 8.2 g/dL (6.4-8.9); eGFR For Non-African Americans > 60 (> 60)
[2018-11-22] MEDS ORDERED: *HR* Dextrose 50 % in Water (Syg) 50 ML SYRINGE IVP PRN ×3 (11:09→21:18)
[2018-11-22] MEDS ORDERED: Insulin Human Regular 100 UNIT in 0.9 % Sodium Chloride 100 ML IVC SCH ×2 (11:15→17:00)
[2018-11-22] MEDS ORDERED: Insulin Regular, Human 100 UNIT/ML IV PRN (11:20)
[2018-11-22] MEDS ORDERED: D5% in 0.45% NACL w KCl 20 MEQ/1,000 ML MLS IVC PRN ×3 (11:20→16:53)
[2018-11-22] MEDS ORDERED: Potassium Chloride 20 MEQ, Lidocaine 1% 2 ML in D5% in Water 250 ML IVPB ONE (11:36)
[2018-11-22 11:57] LABS: Estimated Average Glucose 226 mg/dl; Hemoglobin A1C 9.5 %
[2018-11-22 12:10] LABS: ABG Base Excess -15 mEq/L (-2 to 3); ABG HCO3 11 mEq/L (21-27); ABG Oxygen Saturation 96 % (95-98); ABG PCO2 28 mmHg (35-45); ABG PH 7.21 pH Units (7.32-7.45); ABG PO2 96 mmHg (85-104); ABG TCO2 12 mEq/L (20-26)
[2018-11-22 13:15] LABS: BUN/Creatinine Ratio 23 (6-26); Blood Urea Nitrogen 16 mg/dL (6-20); Calcium 8.5 mg/dL (8.6-10.3); Carbon Dioxide 10 mEq/L (23-29); Chloride 106 mEq/L (98-107); Glucose 395 mg/dL (70-105); Osmolality,Calculated 300 (280-300); Potassium 5.2 mEq/L (3.5-5.1); Sodium 136 mEq/L (136-145); eGFR For Non-African Americans > 60 (> 60)
[2018-11-22] MEDS: Pantoprazole 40 MG VIAL IVP SCH (13:19)
[2018-11-22] MEDS: *HR* Heparin 5,000 UNIT/ML VIAL SQ SCH ×2 (13:19→22:12)
[2018-11-22] MEDS: cefTRIAXone 1,000 MG in Water for inj. (sterile) 20 ML 10 ML IVP SCH (13:29)
[2018-11-22 13:39] LABS: Thyroid Stimulating Hormone 1.234 mcIU/mL (0.340-5.600)
[2018-11-22] MEDS ORDERED: Ringers Solution, Lactated 1,000 ML IVC SCH (14:00)
--- NOTE | 2018-11-22 14:09 | Internal Med History&Physical ---
Date of Encounter: 11/22/18 Time of Encounter: 14:01 Internal Medicine - H&P: HPI Chief complaint: nausea and vomiting Plans for Post Hospital Care: Home History of present illness: Ms. Fernandez is a 48 year old female PMH T1 diabetes on an insulin pump, hyperlipidemia, hypertension, peripheral artery disease, and hypothyroidism. Patient presented to the ED due to 1 day history of nausea and vomiting. Patient reported yesterday afternoon she started having significant nausea and vomiting. Reports she has had too many non-bilious, non-bloody vomiting episodes. she denies denies fever/chills but reports abdominal pain. She denies productive cough or sick contracts. Admits being compliant with her insulin. Reports she has developed some infection under her armpits. In the ED patient was found to be acidotic, with an elevated Anion GAP, on DKA. Hospitalist team called for admission and further management. Past Med Surg Social Fam HX - Past Medical History Medical history: diabetes Additional medical history: RLS Psychiatric history: anxiety, depression - Past Surgical History Surgical History: other, vascular surgery Additional surgical history: tubal ligation - Social History Smoking Status: Current every day smoker Smokeless Tobacco Status: No Alcohol use: none Drug use: marijuana - Family History Mother Living Status: Still Living Hx Family Cancer: Yes (Lung Cancer) Father Living Status: Still Living Hx Family Cardiac Disorders: Yes (PVD) Internal Medicine - H&P: Meds Citalopram Hydrobromide [Citalopram HBr] 40 mg PO DAILY 09/13/16 [History] Insulin ASPART [NovoLOG] 0 unit SQ AD 09/13/16 [History] Levothyroxine [Synthroid] 150 mcg PO QAM 09/13/16 [History] Lisinopril 2.5 mg PO DAILY 09/13/16 [History] Albuterol Sulfate [Albuterol Inhaler] 2 puff IH Q6H PRN 11/22/18 [History] Clindamycin Phosphate [Clindagel] 1 appl TP BID 11/22/18 [History] Gabapentin [Neurontin] 800 mg PO BID 11/22/18 [History] Loratadine [Claritin] 10 mg PO DAILY 11/22/18 [History] Melatonin [Vitajoy] 10 mg PO HS 11/22/18 [History] Omeprazole [PriLOSEC] 40 mg PO DAILY 11/22/18 [History] Rosuvastatin Calcium [Crestor] 40 mg PO DAILY 11/22/18 [History] Allergy/AdvReac Type Severity Reaction Status Date / Time No Known Allergies Allergy Verified 11/22/18 10:35 All Systems PM: A 10-system review of systems was performed and is negative for pertinent findings except as documented above in the HPI. - Constitutional Constitutional: malaise, weakness, no chills, no fever(s), no lethargy - EENT Nose, mouth and throat: no dental pain, no dry mouth - Cardiovascular Cardiovascular ROS IM: no chest pain, no edema, no lightheadedness, no orthopnea, no palpitations, no paroxysmal nocturnal dyspnea - Respiratory Respiratory: no cough, no wheezing - Gastrointestinal Gastrointestinal: abdominal pain, nausea, vomiting, no diarrhea, no melena - Genitourinary Genitourinary: no flank pain, no nocturia, no urinary frequency, no urinary urgency - Musculoskeletal Musculoskeletal ROS IM: no back pain, no muscle weakness - Integumentary Integumentary IM: no rash - Neurological Neurological ROS: no headache(s), no tingling, no weakness - Psychiatric Psychiatric: no anxiety, no irritability - Endocrine Endocrine IM: no cold intolerance, no excessive sweating, no polydipsia, no polyphagia, no polyuria - Hematologic/Lymphatic Hematologic/Lymphatic: no lymphadenopathy - Allergic/Immunologic Allergic/Immunologic: no GI upset with certain foods - Constitutional Vitals: Temp Pulse Resp BP Pulse Ox 97.7 F 105 25 145/75 95 11/22/18 10:57 11/22/18 13:06 11/22/18 13:06 11/22/18 13:06 11/22/18 13:06 Exam: Vitals: Reviewed General: Alert and oriented x4. In mild distress due to nausea, vomiting and abdominal pain Skin: Normal color, no rash, no lesions. HEENT: Dry oral muscus membrane Cardiovascular: RRR, normal S1 & S2, no rubs, murmurs or gallops. No JVD. Pulse regular. Lungs: CTA b/l, no wheezes or crackles. Abdomen: Soft, non-tender, no rigidity. Extremities: Possible carbuncle vs furuncle b/l armpits Neurological: Normal cognition and motor skills. Rest of the physical exam is non contributory Internal Med - H&P Results - Labs CBC & Chem 7: 11/22/18 09:35 11/22/18 12:12 Labs: Short CBC 11/22/18 Range/Units 09:35 WBC 16.7 H (4.3-11.1) K/mcL Hgb 17.4 H (11.5-15.4) g/dL Hct 50.8 H (35.3-44.9) % Plt Count 223 (140-400) K/mcL Neutrophils # 14.6 H (1.6-8.9) K/mcL BMP 11/22/18 11/22/18 09:35 12:12 Sodium 131 L 136 Potassium 4.7 5.2 H Chloride 99 106 Carbon Dioxide 11 L 10 L* BUN 19 16 Creatinine 0.87 0.71 Glucose 472 H 395 H Calcium 9.8 8.5 L Liver Function 11/22/18 Range/Units 09:35 Total Bilirubin 0.8 (0.3-1.0) mg/dL AST 22 (13-39) Units/L ALT 10 (7-52) Units/L Alkaline Phosphatase 135 H (34-104) Units/L Albumin 4.5 (3.5-5.7) g/dL Urine 11/22/18 Range/Units 09:43 Urine Color Yellow (Yellow) Urine Clarity Clear (Clear) Urine pH 5.5 (5.0-8.0) pH Units Ur Specific [place] > 1.030 H (1.010-1.025) Urine Protein 30 H (Neg-Trace) mg/dL Urine Glucose (UA) >=1000 H (Normal) mg/dL - ABG Interpretation ABG results: 11/22/18 11/22/18 09:59 12:06 ABG pH 7.21 L ABG pCO2 28 L ABG pO2 96 ABG HCO3 11 L ABG Total CO2 12 L ABG O2 Saturation 96 ABG Base Excess -15 L VBG pH 7.17 L* VBG pCO2 30 L VBG pO2 87 H VBG HCO3 11 L - Impressions ITS Impressions Chest X-Ray 11/22/18 09:13 IMPRESSION: Stable appearing chest without acute cardiopulmonary process. D/ / Johnie Snow MD / Johnie Snow MD Interpreting Provider: Johnie Snow MD - Diagnostic Studies Chest x-ray Status: image reviewed by me (no acute findings ) - Assessment and Plan (1) DKA (diabetic ketoacidoses) Current Visit: Yes Status: Acute Assessment and plan: Plan patient NPO started on a insulin drip per DKA protocol Accu-checks per DKA protocol 4 litters of IV fluids given Continue LR @125ml/hr as maintenance fluids BMP Q4HRs repeat lactic acid level patient started empirically on IV antibiotics for possible carbuncle/furuncles on both under arms US of the armpits b/l to r/o collection Qualifiers: Diabetes mellitus type: type 1 Diabetes mellitus complication detail: without coma Qualified Code(s): E10.10 - Type 1 diabetes mellitus with ketoacidosis without coma (2) Leukocytosis Current Visit: Yes Status: Acute Assessment and plan: most likely reactive due to dehydration vs acute inflammatory process in the setting of DKA. Plan of care as above. Qualifiers: Leukocytosis type: unspecified Qualified Code(s): D72.829 - Elevated white blood cell count, unspecified (3) DVT prophylaxis Current Visit: No Status: Chronic Assessment and plan: Started on heparin SubQ (4) Dehydration Current Visit: No Status: Acute Assessment and plan: due to DKA. Nausea and vomiting Plan of care as per problem #1. (5) Nausea & vomiting Current Visit: No Status: Acute Assessment and plan: patient NPO. started on ondansetron 4mg/IV Q6HR scheduled. Pantoprazole 40mg/IV daily. Qualifiers: Vomiting type: unspecified Vomiting Intractability: unspecified Qualified Code(s): R11.2 - Nausea with vomiting, unspecified - Time Spent With Patient Total time spent is greater than 50% in coordination of care (as documented) at patient's floor/unit and/or counseling patient: Greater than 35 minutes (50)
[2018-11-22 15:27] LABS: BUN/Creatinine Ratio 18 (6-26); Blood Urea Nitrogen 12 mg/dL (6-20); Carbon Dioxide 10 mEq/L (23-29); Chloride 110 mEq/L (98-107); Glucose 321 mg/dL (70-105); Osmolality,Calculated 290 (280-300); Potassium 4.7 mEq/L (3.5-5.1); Sodium 134 mEq/L (136-145); eGFR For Non-African Americans > 60 (> 60)
[2018-11-22 16:41] LABS: ABG Base Excess -15 mEq/L (-2 to 3); ABG HCO3 11 mEq/L (21-27); ABG Oxygen Saturation 95 % (95-98); ABG PCO2 26 mmHg (35-45); ABG PH 7.23 pH Units (7.32-7.45); ABG PO2 89 mmHg (85-104); ABG TCO2 12 mEq/L (20-26)
--- NOTE | 2018-11-22 17:26 | Electrocardiograph Report ---
[address] [address] Test Date: 2018-11-22 Pat Name: Stephanie Fernandez Department: EXAM5 Room: [facility] Gender: F Keno Attendant: : 1970 Requested By: Daniel Escobedo Order Number: [id number] Reading MD: Isabel Koch Measurements Intervals [place] Rate: 80 P: 82 CO: 141 QRS: 97 QRSD: 110 T: 83 QT: 413 QTc: 477 Interpretive Statements Sinus rhythm Consider biatrial enlargement Artifact Electronically Signed On 11-22-2018 17:25:09 EDT by Isabel Koch
[2018-11-22 20:02] LABS: BUN/Creatinine Ratio 13 (6-26); Blood Urea Nitrogen 9 mg/dL (6-20); Calcium 8.6 mg/dL (8.6-10.3); Carbon Dioxide 16 mEq/L (23-29); Chloride 110 mEq/L (98-107); Glucose 196 mg/dL (70-105); Osmolality,Calculated 280 (280-300); Potassium 4.5 mEq/L (3.5-5.1); Sodium 133 mEq/L (136-145); eGFR For Non-African Americans > 60 (> 60)
[2018-11-22 20:10] LABS: VBG HCO3 17 mEq/L (21-27); VBG PCO2 41 mmHg (41-51); VBG PH 7.22 pH Units (7.32-7.42); VBG PO2 169 mmHg (25-50)
[2018-11-22] MEDS: Ondansetron 4 MG/2 ML VIAL IVP SCH (20:54)
[2018-11-22] MEDS ORDERED: Dextrose Gel 15 GM/37.5 ML TUBE PO PRN ×2 (21:18)
[2018-11-22] MEDS ORDERED: D5% in Water 1,000 ML IVC PRN (21:18)
[2018-11-22] MEDS ORDERED: Insulin DETEMIR 100 UNIT/ML X5UNITS SQ SCH (21:30)
[2018-11-22] MEDS: Insulin LISPRO 300 UNITS/3 ML VIAL SQ SCH (22:10)
[2018-11-23 00:21] LABS: ABG Base Excess -7 mEq/L (-2 to 3); ABG HCO3 17 mEq/L (21-27); ABG Oxygen Saturation 96 % (95-98); ABG PCO2 31 mmHg (35-45); ABG PH 7.35 pH Units (7.32-7.45); ABG PO2 84 mmHg (85-104); ABG TCO2 18 mEq/L (20-26)
[2018-11-23 00:31] LABS: BUN/Creatinine Ratio 12 (6-26); Blood Urea Nitrogen 8 mg/dL (6-20); Calcium 8.2 mg/dL (8.6-10.3); Carbon Dioxide 19 mEq/L (23-29); Chloride 108 mEq/L (98-107); Glucose 281 mg/dL (70-105); Magnesium 1.4 mg/dL (1.6-2.6); Osmolality,Calculated 284 (280-300); Potassium 3.8 mEq/L (3.5-5.1); Sodium 133 mEq/L (136-145); eGFR For Non-African Americans > 60 (> 60)
[2018-11-23] MEDS: Ondansetron 4 MG/2 ML VIAL IVP SCH ×2 (02:58→06:28)
[2018-11-23] MEDS: 0.9 % Sodium Chloride 1,000 ML IVC SCH (04:54)
[2018-11-23] MEDS: *HR* Heparin 5,000 UNIT/ML VIAL SQ SCH ×3 (06:28→20:49)
[2018-11-23] MEDS ORDERED: Ondansetron 4 MG/2 ML VIAL IVP PRN (08:36)
[2018-11-23] MEDS: Pantoprazole 40 MG VIAL IVP SCH (08:47)
[2018-11-23] MEDS: cefTRIAXone 1,000 MG in Water for inj. (sterile) 20 ML 10 ML IVP SCH (08:47)
[2018-11-23] MEDS: Insulin LISPRO 300 UNITS/3 ML VIAL SQ SCH ×6 (08:52→20:48)
[2018-11-23] MEDS: Insulin DETEMIR 100 UNIT/ML X5UNITS SQ SCH ×2 (08:53→20:47)
[2018-11-23 09:23] LABS: Basophils % 0.1 %; Eosinophils % 0.1 %; Hematocrit 43.4 % (35.3-44.9); Immature Granulocytes % 0.3 % (0-4); Lymphocytes # 1.9 K/mcL (0.6-4.6); Lymphocytes % 13.6 %; Mean Corpuscular HGB Conc 34.3 g/dL (31.6-35.5); Mean Corpuscular Hemoglobin 30.5 pg (28.0-33.3); Mean Corpuscular Volume 88.9 fL (83.0-100.0); Mean Platelet Volume 11.6 fL (9.4-12.4); Monocytes # 0.7 K/mcL (0.0-1.3); Monocytes % 5.3 %; Neutrophils # 11.2 K/mcL (1.6-8.9); Platelet Count 168 K/mcL (140-400); Red Blood Count 4.88 M/mcL (3.82-4.97); Red Cell Distribution Width 13.4 % (11.5-14.5); Segmented Neutrophils % 80.6 %
[2018-11-23 09:29] LABS: Hemoglobin 14.9 g/dL (11.5-15.4)
[2018-11-23 09:42] LABS: BUN/Creatinine Ratio 9 (6-26); Blood Urea Nitrogen 5 mg/dL (6-20); Calcium 8.5 mg/dL (8.6-10.3); Carbon Dioxide 19 mEq/L (23-29); Chloride 107 mEq/L (98-107); Glucose 258 mg/dL (70-105); Magnesium 1.4 mg/dL (1.6-2.6); Osmolality,Calculated 288 (280-300); Potassium 3.6 mEq/L (3.5-5.1); Sodium 136 mEq/L (136-145); eGFR For Non-African Americans > 60 (> 60)
--- NOTE | 2018-11-23 11:47 | Internal Med Progress Note ---
Hospitalist Progress Note - Encounter Date of Encounter: 11/23/18 Time of Encounter: 11:45 - Subjective Interval History: Patient seen and examined at bedside. Patient states she feels much better today. She states her nausea and vomiting resolved. She states she is tolerating a diet well. Patient states that she feels like her insulin pump malfunction and that led to her DKA. - Exam Vitals: Temp Pulse Resp BP Pulse Ox 98.7 F 85 18 125/78 95 11/23/18 11:14 11/23/18 11:14 11/23/18 11:14 11/23/18 11:14 11/23/18 11:14 Exam: Heart: Regular rate and rhythm, no murmurs, rubs, gallops Lungs: Clear to auscultation bilaterally, no rales, rhonchi, wheezes Abdomen: Soft, nontender, nondistended normoactive bowel sounds. - Assessment and Plan (1) DKA (diabetic ketoacidoses) Current Visit: Yes Status: Acute Assessment and Plan: Patient presented with DKA. DKA has now resolved. Patient has been transitioned to Levemir with preprandial insulin and sliding scale coverage. Still mildly hyperglycemic, we will up titrate insulin as necessary. Patient states that her insulin pump malfunction. She is going to bring it in and I have recommended that prior to discharge she make sure her insulin pump is working correctly. Restart home statin, RIVAS inhibitor (2) Hypothyroidism Current Visit: Yes Status: Acute Assessment and Plan: Continue Synthroid (3) Diabetes mellitus type 1 Current Visit: No Status: Chronic (4) DVT prophylaxis Current Visit: No Status: Chronic Assessment and Plan: Heparin 5000 units subcutaneous every 8 hours - Time Spent with Patient Total time spent is greater than 50% in coordination of care (as documented) at patient's floor/unit and/or counseling patient: Internal Medicine: Result - Labs CBC & Chem 7: 11/23/18 08:42 11/23/18 08:42 Labs: Short CBC 11/23/18 Range/Units 08:42 WBC 13.9 H (4.3-11.1) K/mcL Hgb 14.9 D (11.5-15.4) g/dL Hct 43.4 (35.3-44.9) % Plt Count 168 (140-400) K/mcL Neutrophils # 11.2 H (1.6-8.9) K/mcL BMP 11/22/18 11/22/18 11/22/18 12:12 14:46 19:23 Sodium 136 134 L 133 L Potassium 5.2 H 4.7 4.5 Chloride 106 110 H 110 H Carbon Dioxide 10 L* 10 L* 16 L BUN 16 12 9 Creatinine 0.71 0.67 0.68 Glucose 395 H 321 H 196 H Calcium 8.5 L 8.0 L 8.6 11/22/18 11/23/18 23:41 08:42 Sodium 133 L 136 Potassium 3.8 3.6 Chloride 108 H 107 Carbon Dioxide 19 L 19 L BUN 8 5 L Creatinine 0.66 0.54 L Glucose 281 H 258 H Calcium 8.2 L 8.5 L - ABG Interpretation ABG results: ABG ABG pH 7.35 pH Units (7.32-7.45) 11/23/18 00:16 ABG pCO2 31 mmHg (35-45) L 11/23/18 00:16 ABG pO2 84 mmHg (85-104) L 11/23/18 00:16 ABG O2 Saturation 96 % (95-98) 11/23/18 00:16 - Impressions Impressions Extremity Ultrasound 11/22/18 14:04 IMPRESSION: 1. Nonspecific superficially located cystic lesions in the area of interest within the bilateral axilla. D/ / 11/22/2018 21:02:05 Emily Graham MD / rusty Interpreting Provider: Emily Graham MD Extremity Ultrasound 11/22/18 14:04 IMPRESSION: 1. Nonspecific superficially located cystic lesions in the area of interest within the bilateral axilla. D/ / 11/22/2018 21:02:05 Emily Graham MD / rusty Interpreting Provider: Emily Graham MD Consult Discharge Plan - Plan Referrals: Anibal Floyd DO [Primary Care Provider] - 11/29/18 10:20 am (1) DKA (diabetic ketoacidoses) Qualifiers: Diabetes mellitus type: type 1 Diabetes mellitus complication detail: without coma Qualified Code(s): E10.10 - Type 1 diabetes mellitus with ketoacidosis without coma (2) Hypothyroidism Qualifiers: Hypothyroidism type: unspecified Qualified Code(s): E03.9 - Hypothyroidism, unspecified (3) Diabetes mellitus type 1 Qualifiers: Diabetes mellitus complication status: with ketoacidosis Diabetes mellitus complication detail: without coma Qualified Code(s): E10.10 - Type 1 diabetes mellitus with ketoacidosis without coma
[2018-11-23] MEDS ORDERED: Acetaminophen 325 MG TABLET PO PRN (16:39)
[2018-11-23] MEDS ORDERED: Melatonin 3 MG TABLET PO SCH (21:00)
[2018-11-24] MEDS: *HR* Heparin 5,000 UNIT/ML VIAL SQ SCH ×2 (05:03→14:30)
[2018-11-24 07:52] LABS: Basophils % 0.4 %; Eosinophils # 0.1 K/mcL (0.0-0.6); Hematocrit 45.3 % (35.3-44.9); Hemoglobin 15.7 g/dL (11.5-15.4); Immature Granulocytes % 0.5 % (0-4); Lymphocytes # 1.8 K/mcL (0.6-4.6); Lymphocytes % 21.8 %; Mean Corpuscular HGB Conc 34.7 g/dL (31.6-35.5); Mean Corpuscular Hemoglobin 30.5 pg (28.0-33.3); Mean Corpuscular Volume 88.1 fL (83.0-100.0); Mean Platelet Volume 11.4 fL (9.4-12.4); Monocytes # 0.4 K/mcL (0.0-1.3); Monocytes % 5.2 %; Neutrophils # 5.9 K/mcL (1.6-8.9); Platelet Count 164 K/mcL (140-400); Red Blood Count 5.14 M/mcL (3.82-4.97); Red Cell Distribution Width 13.4 % (11.5-14.5); Segmented Neutrophils % 71.1 %
[2018-11-24] MEDS: Insulin LISPRO 300 UNITS/3 ML VIAL SQ SCH ×4 (08:10→13:38)
[2018-11-24 08:12] LABS: BUN/Creatinine Ratio 17 (6-26); Blood Urea Nitrogen 9 mg/dL (6-20); Carbon Dioxide 24 mEq/L (23-29); Chloride 102 mEq/L (98-107); Glucose 304 mg/dL (70-105); Magnesium 1.8 mg/dL (1.6-2.6); Osmolality,Calculated 290 (280-300); Potassium 3.7 mEq/L (3.5-5.1); Sodium 135 mEq/L (136-145); eGFR For Non-African Americans > 60 (> 60)
[2018-11-24] MEDS: Insulin DETEMIR 100 UNIT/ML X5UNITS SQ SCH (08:30)
[2018-11-24] MEDS ORDERED: Doxycycline 100 MG CAPSULE PO SCH ×2 (11:15→21:00)
--- NOTE | 2018-11-24 15:43 | Discharge Summary ---
- NOTES TO OUTPATIENT PROVIDER Notes to Outpatient Provider: Patient will need incision and drainage of axillary abscess in 2-3 days which she opted to do as an outpatient as she wanted to leave the hospital. Patient also may need follow-up with dermatology for hidradenitis suppurativa Orders not resulted at time of discharge: Pending orders 11/22/18 11:23 Culture,Blood [BC] Routine Date of Encounter: 11/24/18 Time of Encounter: 15:39 - Discharge Diagnosis (1) Diabetes mellitus type 1 Priority: Secondary Status: Chronic Qualifiers: Diabetes mellitus complication status: with ketoacidosis Diabetes mellitus complication detail: without coma Qualified Code(s): E10.10 - Type 1 diabetes mellitus with ketoacidosis without coma (2) DVT prophylaxis Priority: Secondary Status: Chronic (3) DKA (diabetic ketoacidoses) Priority: Primary Status: Acute Qualifiers: Diabetes mellitus type: type 1 Diabetes mellitus complication detail: without coma Qualified Code(s): E10.10 - Type 1 diabetes mellitus with ketoacidosis without coma (4) Hypothyroidism Priority: Secondary Status: Acute Qualifiers: Hypothyroidism type: unspecified Qualified Code(s): E03.9 - Hypothyroidism, unspecified (5) Hidradenitis axillaris Priority: Secondary Status: Acute (6) Axillary abscess Priority: Secondary Status: Acute Hospital course: Ms. Fernandez is a 48 year old female past medical history of diabetes, anxiety, depression, hypothyroidism came in with nausea and vomiting was found to have DKA. her insulin pump was malfunctioning. Patient was given IV fluids and insulin drip per DKA protocol. Her anion gap closed. She was started on diet which he tolerated well her insulin pump was also resumed after which her blood glucose remained stable. Had discussion about being compliant with her insulin. She also has bilateral axillary redness and papular lesions. Ultrasound was done which showed complex cystic fluid collection with mild hypervascularity bilaterally. Discussed with patient the need for drainage however patient wanted to follow-up outpatient for drainage with PCP. I asked to continue to apply clindamycin until I&D. Discussed importance to follow-up with PCP within 2-3 days for drainage. I asked the patient to follow-up in the ER if she cannot get PCP appointment and worsening axillary abscess or blood sugar control. Discharge discussed with: patient, family, nurse - Time Spent with Patient Total time spent providing and/or coordinating discharge services: Time spent: Greater than 30 minutes - Discharge Medications Prescriptions: Continue Levothyroxine [Synthroid] 150 mcg PO QAM Citalopram Hydrobromide [Citalopram HBr] 40 mg PO DAILY Insulin ASPART [NovoLOG] 0 unit SQ AD Lisinopril 2.5 mg PO DAILY Albuterol Sulfate [Albuterol Inhaler] 2 puff IH Q6H PRN PRN Reason: Shortness Of Breath Clindamycin Phosphate [Clindagel] 1 appl TP BID Gabapentin [Neurontin] 800 mg PO BID Loratadine [Claritin] 10 mg PO DAILY Melatonin [Vitajoy] 10 mg PO HS Omeprazole [PriLOSEC] 40 mg PO DAILY Rosuvastatin Calcium [Crestor] 40 mg PO DAILY Home Medications: Citalopram Hydrobromide [Citalopram HBr] 40 mg PO DAILY 09/13/16 [History] Insulin ASPART [NovoLOG] 0 unit SQ AD 09/13/16 [History] Levothyroxine [Synthroid] 150 mcg PO QAM 09/13/16 [History] Lisinopril 2.5 mg PO DAILY 09/13/16 [History] Albuterol Sulfate [Albuterol Inhaler] 2 puff IH Q6H PRN 11/22/18 [History] Clindamycin Phosphate [Clindagel] 1 appl TP BID 11/22/18 [History] Gabapentin [Neurontin] 800 mg PO BID 11/22/18 [History] Loratadine [Claritin] 10 mg PO DAILY 11/22/18 [History] Melatonin [Vitajoy] 10 mg PO HS 11/22/18 [History] Omeprazole [PriLOSEC] 40 mg PO DAILY 11/22/18 [History] Rosuvastatin Calcium [Crestor] 40 mg PO DAILY 11/22/18 [History] Allergies/Adverse Reactions: Allergy/AdvReac Type Severity Reaction Status Date / Time adhesive tape Allergy Rash Verified 11/23/18 15:05 Date of admission: 11/22/18 11:27 Primary care physician: Anibal Floyd DO Discharging clinician: Dale French - Constitutional Vitals: Temp Pulse Resp BP Pulse Ox 97.9 F 66 16 138/84 97 11/24/18 11:18 11/24/18 11:18 11/24/18 11:18 11/24/18 11:18 11/24/18 11:18 Exam: General: In no acute distress. Respiratory exam: CTAB. no accessory muscle use, rales, rhonchi, wheezes Cardiovascular exam: RRR, +S1, +S2. no murmur, gallop, rubs. GI/Abdominal exam: Non-tender, Non-distended, normal bowel sounds, soft, no peritoneal signs. Extremities exam: no pedal edema, pulses palpable in b/l lower extremities. no calf tenderness Neurological exam: CN II-XII intact, AO X3, no focal deficits. Skin exam: b/l axillary induration and redness associated with tenderness. - Patient Status Disposition: Home, Self-Care Condition: Fair - Discharge Instructions Follow Up With: Anibal Floyd DO [Primary Care Provider] - 11/29/18 10:20 am Forms: ED Satisfaction Letter
[2018-11-24 16:12] VITALS: BP 157/83
== END 2018-11-24 16:21 | disposition home or self-care (01) | DRG 813 ==
LOC: EMEROOARM 09:07 → 2SOUTHHOLD 11:27 → SUATTDRO 11:27 → 2SOUTHHOLD 13:14 → 2NNU 18:13 → 2ANU 11-23 11:39
PROVIDERS: ADMIT Internal Medicine; ATTEND Internal Medicine

== ENCOUNTER 2019-08-21 21:48 | Observation (INO) ==
[2019-08-21 22:31] LABS: Basophils % 0.2 %; Eosinophils % 0.1 %; Hematocrit 45.2 % (35.3-44.9); Hemoglobin 15.2 g/dL (11.5-15.4); Immature Granulocytes % 0.7 % (0-4); Lymphocytes # 0.9 K/mcL (0.6-4.6); Lymphocytes % 4.7 %; Mean Corpuscular HGB Conc 33.6 g/dL (31.6-35.5); Mean Corpuscular Hemoglobin 30.6 pg (28.0-33.3); Mean Corpuscular Volume 90.9 fL (83.0-100.0); Mean Platelet Volume 12.1 fL (9.4-12.4); Monocytes # 0.8 K/mcL (0.0-1.3); Monocytes % 4.1 %; Platelet Count 303 K/mcL (140-400); Red Blood Count 4.97 M/mcL (3.82-4.97); Red Cell Distribution Width 13.3 % (11.5-14.5); Segmented Neutrophils % 90.2 %
[2019-08-21 22:32] LABS: Bilirubin,Urine Negative (Negative); Blood,Urine Negative (Negative); Clarity,Urine Clear (Clear); Color,Urine Yellow (Yellow); Glucose,Urine (UA) >=1000 mg/dL (Normal); Ketones,Urine 80 mg/dL (Negative); Leukocyte Esterase,Urine Negative (Negative); Nitrite,Urine Negative (Negative); PH,Urine 5.5 pH Units (5.0-8.0); Protein,Urine Negative (Neg-Trace); Specific Gravity,Urine > 1.030 (1.010-1.025); Urobilinogen,Urine Normal (Normal)
[2019-08-21 22:38] LABS: VBG HCO3 14 mEq/L (21-27); VBG PCO2 30 mmHg (41-51); VBG PH 7.28 pH Units (7.32-7.42); VBG PO2 103 mmHg (25-50)
[2019-08-21] MEDS ORDERED: 0.9 % Sodium Chloride 1,000 ML IVC SCH (22:45)
[2019-08-21] MEDS ORDERED: Ringers Solution, Lactated 1,000 ML IVC ONE (22:51)
[2019-08-21] MEDS ORDERED: Insulin Regular, Human 100 UNIT/ML IV ONE (22:52)
[2019-08-21] MEDS ORDERED: *HR* Dextrose 50 % in Water (Syg) 50 ML SYRINGE IVP PRN (22:52)
[2019-08-21] MEDS ORDERED: Insulin Human Regular 100 UNIT in 0.9 % Sodium Chloride 100 ML IVC SCH (23:00)
[2019-08-21 23:03] LABS: Alanine Aminotransferase 11 Units/L (7-52); Albumin 4.5 g/dL (3.5-5.7); Albumin/Globulin Ratio 1.5 (1.1-2.2); Alkaline Phosphatase 121 Units/L (34-104); Aspartate Amino Transferase 13 Units/L (13-39); BUN/Creatinine Ratio 21 (6-26); Bilirubin,Direct 0.3 mg/dL (0.0-0.2); Bilirubin,Indirect 0.8 mg/dL (0.0-1.0); Bilirubin,Total 1.1 mg/dL (0.3-1.0); Blood Urea Nitrogen 22 mg/dL (6-20); Carbon Dioxide 13 mEq/L (23-29); Chloride 98 mEq/L (98-107); Globulin 3.1 g/dL (2.4-3.5); Glucose 430 mg/dL (70-105); Osmolality,Calculated 296 (280-300); Potassium 4.1 mEq/L (3.5-5.1); Sodium 132 mEq/L (136-145); Total Protein 7.6 g/dL (6.4-8.9); eGFR For African Americans > 60 (> 60); eGFR For Non-African Americans 57 (> 60)
[2019-08-21] MEDS ORDERED: Potassium Chloride 40 MEQ, Lidocaine 1% 2 ML in 0.9 % Sodium Chloride 500 ML IVPB ONE (23:14)
[2019-08-21 23:42] LABS: Lipase < 3 Units/L (11-82)
[2019-08-22] MEDS ORDERED: Ondansetron 4 MG/2 ML VIAL IVP ONE (01:08)
[2019-08-22] MEDS ORDERED: D5% in 0.45% NACL w KCl 20 MEQ/1,000 ML MLS IVC PRN (01:08)
[2019-08-22] MEDS ORDERED: Insulin Human Regular 100 UNIT in 0.9 % Sodium Chloride 100 ML IVC SCH (01:38)
[2019-08-22 02:09] LABS: BUN/Creatinine Ratio 24 (6-26); Blood Urea Nitrogen 17 mg/dL (6-20); Calcium 8.6 mg/dL (8.6-10.3); Carbon Dioxide 20 mEq/L (23-29); Chloride 106 mEq/L (98-107); Glucose 205 mg/dL (70-105); Osmolality,Calculated 287 (280-300); Potassium 3.8 mEq/L (3.5-5.1); Sodium 135 mEq/L (136-145); eGFR For African Americans > 60 (> 60); eGFR For Non-African Americans > 60 (> 60)
[2019-08-22] MEDS ORDERED: Naloxone 0.4 MG/ML INJ IVP PRN ×2 (02:59→03:51)
[2019-08-22] MEDS ORDERED: Acetaminophen 325 MG TABLET PO PRN (02:59)
[2019-08-22] MEDS ORDERED: Ondansetron ODT 4 MG TAB.RAPDIS SL PRN (02:59)
[2019-08-22 03:51] LABS: Mean Corpuscular HGB Conc 34.2 g/dL (31.6-35.5); Mean Corpuscular Hemoglobin 31.9 pg (28.0-33.3); Mean Corpuscular Volume 93.3 fL (83.0-100.0); Mean Platelet Volume 11.5 fL (9.4-12.4); Platelet Count 204 K/mcL (140-400); Red Blood Count 3.86 M/mcL (3.82-4.97); Red Cell Distribution Width 13.2 % (11.5-14.5); White Blood Count 13.8 K/mcL (4.3-11.1)
[2019-08-22 03:57] LABS: Hemoglobin 12.3 g/dL (11.5-15.4)
[2019-08-22 04:12] LABS: BUN/Creatinine Ratio 24 (6-26); Blood Urea Nitrogen 15 mg/dL (6-20); Calcium 8.6 mg/dL (8.6-10.3); Carbon Dioxide 21 mEq/L (23-29); Chloride 107 mEq/L (98-107); Glucose 175 mg/dL (70-105); Osmolality,Calculated 285 (280-300); Potassium 4.3 mEq/L (3.5-5.1); Sodium 135 mEq/L (136-145); eGFR For African Americans > 60 (> 60); eGFR For Non-African Americans > 60 (> 60)
[2019-08-22 05:00] LABS: Basophils % 0.3 %; Eosinophils % 0.1 %; Hematocrit 36.1 % (35.3-44.9); Hemoglobin 12.3 g/dL (11.5-15.4); Immature Granulocytes % 0.5 % (0-4); Lymphocytes % 17.7 %; Mean Corpuscular HGB Conc 34.1 g/dL (31.6-35.5); Mean Corpuscular Hemoglobin 30.4 pg (28.0-33.3); Mean Corpuscular Volume 89.1 fL (83.0-100.0); Mean Platelet Volume 11.7 fL (9.4-12.4); Monocytes # 0.5 K/mcL (0.0-1.3); Monocytes % 4.6 %; Neutrophils # 8.8 K/mcL (1.6-8.9); Platelet Count 212 K/mcL (140-400); Red Blood Count 4.05 M/mcL (3.82-4.97); Red Cell Distribution Width 13.2 % (11.5-14.5); Segmented Neutrophils % 76.8 %; White Blood Count 11.4 K/mcL (4.3-11.1)
[2019-08-22 05:36] LABS: Magnesium 1.5 mg/dL (1.6-2.6); Phosphorous 1.6 mg/dL (2.7-4.5)
[2019-08-22] MEDS: *HR* Enoxaparin 40 MG/0.4 ML SYRINGE SQ SCH (06:00)
[2019-08-22] MEDS ORDERED: Dextrose Gel 15 GM/37.5 ML TUBE PO PRN ×2 (08:19)
[2019-08-22] MEDS ORDERED: *HR* Dextrose 50 % in Water (Syg) 50 ML SYRINGE IVP PRN (08:19)
[2019-08-22] MEDS ORDERED: D5% in Water 1,000 ML IVC PRN (08:19)
[2019-08-22] MEDS: Insulin LISPRO 300 UNITS/3 ML VIAL SQ SCH ×3 (09:24→17:30)
[2019-08-22] MEDS: Insulin DETEMIR 100 UNIT/ML X5UNITS SQ SCH (09:26)
[2019-08-22] MEDS: Sulfamethoxazole/Trimeth DS 1 EACH TABLET PO SCH ×2 (09:26→20:25)
[2019-08-22] MEDS: Gabapentin 400 MG CAPSULE PO SCH (20:25)
[2019-08-22] MEDS: Melatonin 3 MG TABLET PO SCH (20:25)
[2019-08-22] MEDS ORDERED: Insulin LISPRO 300 UNITS/3 ML VIAL SQ SCH (21:00)
[2019-08-23 02:34] LABS: Basophils % 0.3 %; Eosinophils # 0.1 K/mcL (0.0-0.6); Eosinophils % 1.5 %; Hematocrit 38.5 % (35.3-44.9); Hemoglobin 12.8 g/dL (11.5-15.4); Immature Granulocytes % 0.2 % (0-4); Lymphocytes # 2.1 K/mcL (0.6-4.6); Lymphocytes % 32.4 %; Mean Corpuscular HGB Conc 33.2 g/dL (31.6-35.5); Mean Corpuscular Hemoglobin 31.1 pg (28.0-33.3); Mean Corpuscular Volume 93.7 fL (83.0-100.0); Mean Platelet Volume 11.8 fL (9.4-12.4); Monocytes # 0.4 K/mcL (0.0-1.3); Monocytes % 6.5 %; Neutrophils # 3.9 K/mcL (1.6-8.9); Platelet Count 174 K/mcL (140-400); Red Blood Count 4.11 M/mcL (3.82-4.97); Red Cell Distribution Width 13.3 % (11.5-14.5); Segmented Neutrophils % 59.1 %; White Blood Count 6.6 K/mcL (4.3-11.1)
[2019-08-23 02:51] LABS: BUN/Creatinine Ratio 16 (6-26); Blood Urea Nitrogen 10 mg/dL (6-20); Calcium 8.7 mg/dL (8.6-10.3); Carbon Dioxide 22 mEq/L (23-29); Chloride 102 mEq/L (98-107); Glucose 179 mg/dL (70-105); Osmolality,Calculated 280 (280-300); Sodium 133 mEq/L (136-145); eGFR For African Americans > 60 (> 60); eGFR For Non-African Americans > 60 (> 60)
[2019-08-23] MEDS: *HR* Enoxaparin 40 MG/0.4 ML SYRINGE SQ SCH (05:50)
[2019-08-23] MEDS: Loratadine 10 MG TABLET PO SCH (07:48)
[2019-08-23] MEDS: Gabapentin 400 MG CAPSULE PO SCH ×3 (07:48→20:08)
[2019-08-23] MEDS: Sulfamethoxazole/Trimeth DS 1 EACH TABLET PO SCH ×2 (07:48→20:08)
[2019-08-23] MEDS: Insulin DETEMIR 100 UNIT/ML X5UNITS SQ SCH (07:49)
[2019-08-23] MEDS: Insulin LISPRO 300 UNITS/3 ML VIAL SQ SCH ×2 (07:49→11:35)
[2019-08-23 10:02] LABS: Magnesium 1.5 mg/dL (1.6-2.6); Phosphorous 2.2 mg/dL (2.7-4.5)
[2019-08-23] MEDS ORDERED: Insulin LISPRO 300 UNITS/3 ML VIAL SQ SCH (12:00)
[2019-08-23] MEDS ORDERED: Subcutaneous Insulin Pump [T:Slim] SQ SCH (15:00)
[2019-08-23] MEDS: Melatonin 3 MG TABLET PO SCH (20:08)
[2019-08-24 01:40] LABS: Basophils % 0.4 %; Eosinophils # 0.2 K/mcL (0.0-0.6); Eosinophils % 3.7 %; Hemoglobin 14.3 g/dL (11.5-15.4); Immature Granulocytes % 0.2 % (0-4); Lymphocytes # 2.2 K/mcL (0.6-4.6); Lymphocytes % 41.2 %; Mean Corpuscular Volume 90.9 fL (83.0-100.0); Mean Platelet Volume 11.5 fL (9.4-12.4); Monocytes # 0.5 K/mcL (0.0-1.3); Monocytes % 9.1 %; Neutrophils # 2.4 K/mcL (1.6-8.9); Platelet Count 180 K/mcL (140-400); Red Blood Count 4.62 M/mcL (3.82-4.97); Red Cell Distribution Width 13.1 % (11.5-14.5); Segmented Neutrophils % 45.4 %; White Blood Count 5.4 K/mcL (4.3-11.1)
[2019-08-24 01:57] LABS: BUN/Creatinine Ratio 22 (6-26); Blood Urea Nitrogen 15 mg/dL (6-20); Calcium 9.4 mg/dL (8.6-10.3); Carbon Dioxide 25 mEq/L (23-29); Chloride 101 mEq/L (98-107); Glucose 102 mg/dL (70-105); Magnesium 1.8 mg/dL (1.6-2.6); Osmolality,Calculated 279 (280-300); Phosphorous 4.5 mg/dL (2.7-4.5); Potassium 3.5 mEq/L (3.5-5.1); Sodium 134 mEq/L (136-145); eGFR For African Americans > 60 (> 60); eGFR For Non-African Americans > 60 (> 60)
[2019-08-24] MEDS: *HR* Enoxaparin 40 MG/0.4 ML SYRINGE SQ SCH (06:11)
[2019-08-24 07:11] VITALS: BP 125/88
[2019-08-24] MEDS: Gabapentin 400 MG CAPSULE PO SCH (08:02)
[2019-08-24] MEDS: Loratadine 10 MG TABLET PO SCH (08:02)
[2019-08-24] MEDS: Sulfamethoxazole/Trimeth DS 1 EACH TABLET PO SCH (08:02)
== END 2019-08-24 12:35 | disposition home or self-care (01) ==
LOC: 2NNU 21:48 → EMEROOARM 21:48 → SUATTDRO 08-22 02:30 → 2NNU 08-22 03:00
PROVIDERS: ADMIT Internal Medicine; ATTEND Family Medicine

== ENCOUNTER 2020-10-12 07:31 | Inpatient (IN) ==
[2020-10-12] MEDS ORDERED: 0.9 % Sodium Chloride 1,000 ML IVC ONE ×3 (07:57→10:06)
[2020-10-12] MEDS ORDERED: Ondansetron 4 MG/2 ML VIAL IVP ONE (07:57)
[2020-10-12] MEDS ORDERED: Ondansetron 4 MG/2 ML VIAL ONE (07:58)
[2020-10-12 08:22] LABS: Basophils # 0.1 K/mcL (0.0-0.2); Basophils % 0.6 %; Eosinophils # 0.1 K/mcL (0.0-0.6); Eosinophils % 0.6 %; Hematocrit 51.1 % (35.3-44.9); Hemoglobin 17.5 g/dL (11.5-15.4); Immature Granulocytes % 0.6 % (0-4); Lymphocytes # 2.3 K/mcL (0.6-4.6); Mean Corpuscular HGB Conc 34.2 g/dL (31.6-35.5); Mean Corpuscular Hemoglobin 30.1 pg (28.0-33.3); Mean Corpuscular Volume 87.8 fL (83.0-100.0); Mean Platelet Volume 12.1 fL (9.4-12.4); Monocytes # 0.7 K/mcL (0.0-1.3); Monocytes % 4.1 %; Platelet Count 296 K/mcL (140-400); Red Blood Count 5.82 M/mcL (3.82-4.97); Red Cell Distribution Width 13.2 % (11.5-14.5); Segmented Neutrophils % 80.1 %; White Blood Count 16.2 K/mcL (4.3-11.1)
[2020-10-12 08:25] LABS: Bilirubin,Urine Negative (Negative); Blood,Urine Negative (Negative); Clarity,Urine Clear (Clear); Color,Urine Colorless (Yellow); Glucose,Urine (UA) >=1000 mg/dL (Normal); Ketones,Urine 150 mg/dL (Negative); Leukocyte Esterase,Urine Negative (Negative); Mucus,Urine Few per lpf (None-Few); Nitrite,Urine Negative (Negative); PH,Urine 5.5 pH Units (5.0-8.0); Protein,Urine Trace mg/dL (Neg-Trace); Specific Gravity,Urine > 1.030 (1.010-1.025); Squamous Epithelial Cell,Urine Moderate per hpf (None-Few); Urobilinogen,Urine Normal (Normal); WBC,Urine 0-3 per hpf (0-3)
[2020-10-12 08:51] LABS: Alanine Aminotransferase 12 Units/L (7-52); Albumin 4.5 g/dL (3.5-5.7); Albumin/Globulin Ratio 1.3 (1.1-2.2); Alkaline Phosphatase 153 Units/L (34-104); Amylase 12 Units/L (29-103); Aspartate Amino Transferase 12 Units/L (13-39); BUN/Creatinine Ratio 21 (6-26); Bilirubin,Direct 0.2 mg/dL (0.0-0.2); Bilirubin,Indirect 0.5 mg/dL (0.0-1.0); Bilirubin,Total 0.7 mg/dL (0.3-1.0); Blood Urea Nitrogen 17 mg/dL (6-20); Calcium 10.1 mg/dL (8.6-10.3); Carbon Dioxide 14 mEq/L (23-29); Chloride 95 mEq/L (98-107); Globulin 3.5 g/dL (2.4-3.5); Glucose 519 mg/dL (70-105); Lipase 10 Units/L (11-82); Osmolality,Calculated 301 (280-300); Sodium 133 mEq/L (136-145); Troponin I < 0.03 ng/mL (< 0.04); eGFR For African Americans > 60 (> 60); eGFR For Non-African Americans > 60 (> 60)
[2020-10-12] MEDS ORDERED: Insulin Human Regular 100 UNIT in 0.9 % Sodium Chloride 100 ML IVC SCH ×2 (09:00→11:15)
[2020-10-12] MEDS ORDERED: *HR* FentaNYL (PF) 100 MCG/2 ML VIAL IVP ONE (09:23)
[2020-10-12 09:31] LABS: VBG HCO3 15 mEq/L (21-27); VBG PCO2 30 mmHg (41-51); VBG PO2 156 mmHg (25-50)
[2020-10-12] MEDS ORDERED: Metoclopramide 10 MG/2 ML VIAL IVP ONE (10:18)
[2020-10-12] MEDS ORDERED: Insulin Regular, Human 100 UNIT/ML IV PRN (11:13)
[2020-10-12] MEDS ORDERED: *HR* Dextrose 50 % in Water (Vial) 50 ML VIAL IVP PRN (11:13)
[2020-10-12] MEDS ORDERED: 0.45 % Sodium Chloride w/KCl 20 MEQ/1,000 ML MLS IVC SCH (11:15)
[2020-10-12] MEDS ORDERED: 0.9 % Sodium Chloride w KCl 20 MEQ/1,000 ML MLS IVC SCH (13:15)
[2020-10-12] MEDS ORDERED: Acetaminophen 325 MG TABLET PO PRN (13:29)
[2020-10-12] MEDS ORDERED: *HR* HYDROcodone/Acet 5/325 mg TABLET PO PRN (13:29)
[2020-10-12] MEDS ORDERED: Naloxone 0.4 MG/ML INJ IVP PRN (13:29)
[2020-10-12] MEDS: *HR* OxyCODONE Immed Rel 5 MG TABLET PO PRN (13:44)
[2020-10-12] MEDS: Ondansetron 4 MG/2 ML VIAL IVP PRN ×2 (13:45→21:57)
[2020-10-12] MEDS: rifAMPin 150 MG CAPSULE PO SCH (13:45)
[2020-10-12 14:13] LABS: VBG HCO3 16 mEq/L (21-27); VBG PCO2 38 mmHg (41-51); VBG PH 7.24 pH Units (7.32-7.42); VBG PO2 128 mmHg (25-50)
[2020-10-12 14:23] LABS: BUN/Creatinine Ratio 21 (6-26); Blood Urea Nitrogen 12 mg/dL (6-20); Calcium 8.3 mg/dL (8.6-10.3); Carbon Dioxide 17 mEq/L (23-29); Chloride 111 mEq/L (98-107); Glucose 197 mg/dL (70-105); Magnesium 1.3 mg/dL (1.6-2.6); Osmolality,Calculated 289 (280-300); Phosphorous 1.8 mg/dL (2.7-4.5); Potassium 4.2 mEq/L (3.5-5.1); Sodium 137 mEq/L (136-145); eGFR For African Americans > 60 (> 60); eGFR For Non-African Americans > 60 (> 60)
[2020-10-12] MEDS ORDERED: D5% in 0.45% NACL w KCl 20 MEQ/1,000 ML MLS IVC SCH (14:30)
[2020-10-12 14:35] LABS: Thyroid Stimulating Hormone 0.111 mcIU/mL (0.340-5.600)
[2020-10-12 15:05] LABS: Estimated Average Glucose 217 mg/dl; Hemoglobin A1C 9.2 %
[2020-10-12 16:16] LABS: BUN/Creatinine Ratio 19 (6-26); Blood Urea Nitrogen 11 mg/dL (6-20); Calcium 8.7 mg/dL (8.6-10.3); Carbon Dioxide 20 mEq/L (23-29); Chloride 111 mEq/L (98-107); Glucose 88 mg/dL (70-105); Osmolality,Calculated 281 (280-300); Potassium 4.3 mEq/L (3.5-5.1); Sodium 136 mEq/L (136-145); eGFR For African Americans > 60 (> 60); eGFR For Non-African Americans > 60 (> 60)
[2020-10-12 16:42] LABS: Amphetamine Screen,Urine Negative ng/mL (Cutoff=1000); Barbiturate Screen,Urine Negative ng/mL (Cutoff=200); Benzodiazepines Screen,Urine Negative ng/mL (Cutoff=200); Cannabinoid Screen,Urine Positive ng/mL (Cutoff = 50); Cocaine Screen,Urine Negative ng/mL (Cutoff= 300); Opiate Screen,Urine Negative ng/mL (Cutoff=300); Phencyclidine Screen,Urine Negative ng/mL (Cutoff=25)
[2020-10-12] MEDS ORDERED: Potassium Phosphate 44 MEQ in 0.9 % Sodium Chloride 250 ML IVPB ONE (18:03)
[2020-10-12 18:46] LABS: Triiodothyronine (T3) Total 0.63 ng/mL (0.87-1.78)
[2020-10-12] MEDS ORDERED: Clobetasol Propionate 0.05% 15 GM Cream Tube TP PRN (19:58)
[2020-10-12] MEDS: CLINDAMYCIN PHOSPHATE TP SCH (20:08)
[2020-10-12] MEDS: Nicotine 21 MG PATCH.TD24 TD SCH (20:14)
[2020-10-12] MEDS: Melatonin 3 MG TABLET PO PRN (20:15)
[2020-10-12] MEDS: Gabapentin 400 MG CAPSULE PO SCH (20:15)
[2020-10-12 20:54] LABS: BUN/Creatinine Ratio 16 (6-26); Blood Urea Nitrogen 9 mg/dL (6-20); Calcium 8.9 mg/dL (8.6-10.3); Carbon Dioxide 15 mEq/L (23-29); Chloride 106 mEq/L (98-107); Glucose 270 mg/dL (70-105); Osmolality,Calculated 282 (280-300); Potassium 5.1 mEq/L (3.5-5.1); Sodium 132 mEq/L (136-145); eGFR For African Americans > 60 (> 60); eGFR For Non-African Americans > 60 (> 60)
[2020-10-12] MEDS ORDERED: Insulin LISPRO 300 UNITS/3 ML VIAL SUBQ SCH (21:00)
[2020-10-12] MEDS ORDERED: Insulin DETEMIR 100 UNIT/ML X5UNITS SUBQ SCH (21:00)
[2020-10-13 00:34] LABS: BUN/Creatinine Ratio 15 (6-26); Blood Urea Nitrogen 9 mg/dL (6-20); Calcium 8.6 mg/dL (8.6-10.3); Carbon Dioxide 16 mEq/L (23-29); Chloride 107 mEq/L (98-107); Glucose 228 mg/dL (70-105); Osmolality,Calculated 278 (280-300); Potassium 5.3 mEq/L (3.5-5.1); Sodium 131 mEq/L (136-145); eGFR For African Americans > 60 (> 60); eGFR For Non-African Americans > 60 (> 60)
[2020-10-13] MEDS: *HR* Enoxaparin 40 MG/0.4 ML SYRINGE SQ SCH (05:30)
[2020-10-13 05:51] LABS: BUN/Creatinine Ratio 16 (6-26); Blood Urea Nitrogen 9 mg/dL (6-20); Calcium 8.7 mg/dL (8.6-10.3); Chloride 104 mEq/L (98-107); Glucose 252 mg/dL (70-105); Osmolality,Calculated 275 (280-300); Phosphorous 2.3 mg/dL (2.7-4.5); Potassium 5.4 mEq/L (3.5-5.1); Sodium 129 mEq/L (136-145); eGFR For African Americans > 60 (> 60); eGFR For Non-African Americans > 60 (> 60)
[2020-10-13] MEDS ORDERED: D5% in 0.45% NACL w KCl 20 MEQ/1,000 ML MLS IVC PRN (06:08)
[2020-10-13] MEDS ORDERED: D5% in 0.45% NACL 1,000 ML IVC PRN (06:08)
[2020-10-13] MEDS ORDERED: Insulin Human Regular 100 UNIT in 0.9 % Sodium Chloride 100 ML IVC SCH (06:15)
[2020-10-13 06:42] LABS: Basophils % 0.3 %; Eosinophils % 0.1 %; Hematocrit 47.9 % (35.3-44.9); Hemoglobin 15.9 g/dL (11.5-15.4); Immature Granulocytes % 0.4 % (0-4); Lymphocytes # 2.2 K/mcL (0.6-4.6); Lymphocytes % 13.6 %; Mean Corpuscular HGB Conc 33.2 g/dL (31.6-35.5); Mean Corpuscular Hemoglobin 29.9 pg (28.0-33.3); Mean Platelet Volume 11.3 fL (9.4-12.4); Monocytes # 0.8 K/mcL (0.0-1.3); Neutrophils # 12.8 K/mcL (1.6-8.9); Platelet Count 220 K/mcL (140-400); Red Blood Count 5.32 M/mcL (3.82-4.97); Red Cell Distribution Width 13.6 % (11.5-14.5); Segmented Neutrophils % 80.6 %; White Blood Count 15.9 K/mcL (4.3-11.1)
[2020-10-13 07:01] LABS: Carbon Dioxide 9 mEq/L (23-29)
[2020-10-13] MEDS ORDERED: Insulin LISPRO 300 UNITS/3 ML VIAL SUBQ SCH ×3 (07:30→21:00)
[2020-10-13] MEDS: Loratadine 10 MG TABLET PO SCH (08:03)
[2020-10-13] MEDS: lisinopriL 5 MG TABLET PO SCH (08:03)
[2020-10-13] MEDS: Gabapentin 400 MG CAPSULE PO SCH ×3 (08:03→21:07)
[2020-10-13] MEDS: Multivit/Ca/Min/Fe/FA 1 TAB TABLET PO SCH (08:03)
[2020-10-13] MEDS: Nicotine 21 MG PATCH.TD24 TD SCH (08:04)
[2020-10-13] MEDS: rifAMPin 150 MG CAPSULE PO SCH ×2 (08:04→15:46)
[2020-10-13 08:30] LABS: BUN/Creatinine Ratio 16 (6-26); Blood Urea Nitrogen 9 mg/dL (6-20); Carbon Dioxide 17 mEq/L (23-29); Chloride 104 mEq/L (98-107); Glucose 214 mg/dL (70-105); Osmolality,Calculated 275 (280-300); Sodium 130 mEq/L (136-145); eGFR For African Americans > 60 (> 60); eGFR For Non-African Americans > 60 (> 60)
[2020-10-13] MEDS: CLINDAMYCIN PHOSPHATE TP SCH ×2 (09:11→21:08)
[2020-10-13] MEDS: (Tiotropium Br/Olodaterol Hcl [Stiolto Respimat Inhaler]) IH SCH (09:11)
[2020-10-13] MEDS: Insulin Human Regular 100 UNIT in 0.9 % Sodium Chloride 100 ML IVC SCH ×2 (11:15→13:44)
[2020-10-13 11:43] LABS: BUN/Creatinine Ratio 18 (6-26); Blood Urea Nitrogen 10 mg/dL (6-20); Calcium 9.2 mg/dL (8.6-10.3); Carbon Dioxide 21 mEq/L (23-29); Chloride 106 mEq/L (98-107); Glucose 88 mg/dL (70-105); Osmolality,Calculated 276 (280-300); Potassium 3.6 mEq/L (3.5-5.1); Sodium 134 mEq/L (136-145); eGFR For African Americans > 60 (> 60); eGFR For Non-African Americans > 60 (> 60)
[2020-10-13] MEDS ORDERED: Dextrose Gel 15 GM/37.5 ML TUBE PO PRN ×2 (12:55)
[2020-10-13] MEDS ORDERED: D5% in Water 1,000 ML IVC PRN (12:55)
[2020-10-13] MEDS ORDERED: *HR* Dextrose 50 % in Water (Vial) 50 ML VIAL IVP PRN (12:55)
[2020-10-13] MEDS: Insulin DETEMIR 100 UNIT/ML X5UNITS SUBQ SCH ×2 (13:35→21:10)
[2020-10-13] MEDS: Clindamycin 600 MG/50 ML 600 MG/50 ML IV.SOLN IVPB SCH (15:46)
[2020-10-13 17:12] LABS: BUN/Creatinine Ratio 15 (6-26); Blood Urea Nitrogen 9 mg/dL (6-20); Calcium 9.8 mg/dL (8.6-10.3); Carbon Dioxide 19 mEq/L (23-29); Chloride 101 mEq/L (98-107); Glucose 254 mg/dL (70-105); Osmolality,Calculated 279 (280-300); Potassium 4.4 mEq/L (3.5-5.1); Sodium 131 mEq/L (136-145); eGFR For African Americans > 60 (> 60); eGFR For Non-African Americans > 60 (> 60)
[2020-10-13] MEDS: Insulin LISPRO 300 UNITS/3 ML VIAL SUBQ SCH (17:46)
[2020-10-13] MEDS: *HR* OxyCODONE Immed Rel 5 MG TABLET PO PRN (21:07)
[2020-10-13] MEDS: Melatonin 3 MG TABLET PO PRN (21:07)
[2020-10-14] MEDS: Clindamycin 600 MG/50 ML 600 MG/50 ML IV.SOLN IVPB SCH ×2 (00:24→07:49)
[2020-10-14] MEDS: *HR* Enoxaparin 40 MG/0.4 ML SYRINGE SQ SCH (05:04)
[2020-10-14] MEDS: Multivit/Ca/Min/Fe/FA 1 TAB TABLET PO SCH (07:47)
[2020-10-14] MEDS: *HR* OxyCODONE Immed Rel 5 MG TABLET PO PRN (07:47)
[2020-10-14] MEDS: rifAMPin 150 MG CAPSULE PO SCH (07:48)
[2020-10-14] MEDS: Loratadine 10 MG TABLET PO SCH (07:48)
[2020-10-14] MEDS: Nicotine 21 MG PATCH.TD24 TD SCH (07:48)
[2020-10-14] MEDS: Gabapentin 400 MG CAPSULE PO SCH (07:48)
[2020-10-14] MEDS: Insulin LISPRO 300 UNITS/3 ML VIAL SUBQ SCH ×2 (07:51→11:37)
[2020-10-14] MEDS: lisinopriL 5 MG TABLET PO SCH (07:51)
[2020-10-14] MEDS: Insulin DETEMIR 100 UNIT/ML X5UNITS SUBQ SCH (07:55)
[2020-10-14] MEDS: Ondansetron 4 MG/2 ML VIAL IVP PRN (08:21)
[2020-10-14] MEDS: (Tiotropium Br/Olodaterol Hcl [Stiolto Respimat Inhaler]) IH SCH (09:12)
[2020-10-14] MEDS: CLINDAMYCIN PHOSPHATE TP SCH (09:12)
[2020-10-14 10:43] VITALS: BP 125/83
== END 2020-10-14 14:48 | disposition home or self-care (01) | DRG 420 ==
LOC: 2NNU 07:31 → EMEROOARM 07:31 → SUATTDRO 11:16 → 2NNU 13:05
PROVIDERS: ADMIT Internal Medicine; ATTEND Internal Medicine